=== PATIENT | female | born 1955 | race Caucasian/White ===

== ENCOUNTER → 2017-09-12 07:56 | Outpatient (CLI) | payer OTHER, SELFPAY ==
--- NOTE | 2017-09-12 | BRBX_PTH ---
PATIENT: HEBER GOMEZ LOC: [facility] U#:[id number] AGE/SX: 70/F ROOM: RE09/12/[address]: Dr. Vasile Montoya MD : 1955 BED: DIS: SPEC #: [id number] RECD: 09/12/17 13:43 STATUS: MALLORY XAVIER #: [id number] DUANE: 09/12/17 00:[address]: Vasile Montoya DEPT: SURGICAL PATHOLOGY RECD BY: Neil Pires ENTERED: 09/12/17 13:43 SP TYPE: BREAST BX OTHR DR: Dr. Jeff Ochoa MD Tissues: Left breast, NOS Procedures: Surgery Specimen Level IV HEADER OPERATION: Left breast PRE-OP DIAGNOSIS: Left breast lesion; breast lesion solid vs in situ with debris TISSUE SUBMITTED: Left breast 3 o?clock ISCHEMIC TIME: 60 seconds FIXATION TIME: 48 hours MICROSCOPIC DIAGNOSIS Left breast, 3 o?clock, biopsy: Focal mild intraductal hyperplasia without atypia. Focal microcalcification. Negative for malignancy. KERRIE:raman 09/15/17 COMMENT Correlation with clinical, radiologic findings and appropriate follow up are necessary. If there is a high suspicion of malignancy, rebiopsy is suggested if clinically indicated. MICROSCOPIC DESCRIPTION Slides are reviewed. GROSS DESCRIPTION Received in fixative is one container labeled with the patient's name and designated left breast. The specimen consists of multiple elongated fragments of brown-yellow fibroadipose tissue mixed with blood clot that in aggregate measure 2.5 x 1 x 0.1 cm. The entire specimen is submitted in one cassette. / KERRIE:raman 09/12/17 TC:5 CPT: 11036
--- NOTE | 2017-09-12 08:24 | US_ITS ---
STUDY: ULTRASOUND BREAST - LEFT REASON FOR EXAM: Female, 62 years old. Cyst drainage and core biopsy. TECHNIQUE: Axial and longitudinal images of the LEFT breast were performed with a high resolution ultrasound transducer. COMPARISON: None. FINDINGS: LEFT Breast: The surgeon performed a drainage of a small cyst at the 2:00 position breast at 4 cm from the nipple. The surgeon also performed ultrasound guided biopsy of a 4 mm x 4 mm x 3 mm hypoechoic solid nodule at the 3:00 position breast. US/US Breast Biopsy 1st Lesion IMPRESSION: Ultrasound guided breast aspiration and biopsy. ASSESSMENT CATEGORY: BIRADS Category 2: Benign. A letter regarding these results will be sent to the patient by the facility within 30 days. Electronically Signed: Pardeep Lyons MD at 10:40 EDT Tel [phone], Service support ,
--- NOTE | 2017-09-12 09:14 | PCM.OPRPT ---
Problem List (1) Cyst of left breast Status: Acute Report of Operation Date of Procedure: 09/12/17 Pre-Operative Diagnosis: Left breast cyst ?2 with debris Post-Operative Diagnosis: Same Surgery/Procedure Performed:: Ultrasound-guided left breast cyst aspiration. Ultrasound-guided left breast retroareolar biopsy with mammotome Specimen's removed: Left breast retroareolar biopsy Description of Procedure: The patient's left breast was prepped and draped in usual sterile fashion. Ultrasound was used to localize the lateral cyst. The skin was anesthetized and a 22-gauge needle was placed into the cyst and it was aspirated. The cyst ruptured upon puncture. Next the retroareolar cyst with debris was localized. The skin was anesthetized and a small incision was made with 11 blade scalpel. Next the mammotome was placed below the cyst with ultrasound guidance. The mammotome was used to biopsy this area. The needle was removed and pressure was held. Steri-Strip was placed over the incision as well as a bandage. Patient tolerated the procedure well.
== END ==
PROVIDERS: Visit Provider Surgery
DX: N60.02 Solitary cyst of left breast (principal); N62 Hypertrophy of breast; Z98.84 Bariatric surgery status
CPT/HCPCS: 19083; 88305

== ENCOUNTER → 2018-11-02 | Outpatient (CLI) | payer OTHER, SELFPAY ==
--- NOTE | 2018-11-02 14:58 | BI_ITS ---
MAMMOGRAPHY - BILATERAL SCREENING REASON FOR EXAM: Female, 63 years old. Routine annual screening examination. PERTINENT HISTORY: Mother with breast cancer. Grandmother with breast cancer. TECHNIQUE: Digital bilateral breast tricia (3D mammographic acquisition) in the CC and MLO projections. 2-D mediolateral oblique (MLO) and craniocaudad (CC) views of both breasts were obtained. CAD: Full Field Digital Mammography with Computer Added Detection was performed. COMPARISON: Comparison is made with prior operative examination dated April 24, 2016. FINDINGS: Breast Composition: The breasts are heterogeneously dense, which may obscure small masses. There are no dominant masses or suspicious calcifications. Stable benign-appearing bilateral axillary lymph nodes. No other significant abnormalities are identified. There has been no significant change since the prior study. BI/SCREEN MAMM (CAD) W/TRICIA BILAT IMPRESSION: Stable bilateral screening mammogram. Yearly follow-up mammogram recommended. (A) ASSESSMENT CATEGORY: BIRADS Category 2: Benign. A letter regarding these results will be sent to the patient by the facility within 30 days. Approximately 10% of breast cancers are not detected by mammography. A normal mammogram should not delay biopsy of a clinically suspicious abnormality. [id number] Electronically Signed: Pardeep Lyons, at 9:17 EDT , Service support ,
== END | disposition home or self-care (01) ==
LOC: OPBI 14:55
PROVIDERS: Referring Provider Surgery; Visit Provider Surgery
DX: Z12.31 Encounter for screening mammogram for malignant neoplasm of breast (principal)
CPT/HCPCS: 77063; 77067

== ENCOUNTER → 2019-03-10 13:15 | Outpatient (REF) | payer OTHER, SELFPAY ==
[2019-03-10 14:34] LABS: Vitamin B12 1553 pg/mL (211-911)
[2019-03-10 14:46] LABS: PTHIN 81.1 pg/mL (18.4-80.1)
== END ==
LOC: OLS.WCEH 13:15
DX: R69 Illness, unspecified (principal)
CPT/HCPCS: 82607; 83970

== ENCOUNTER → 2019-09-27 10:54 | Outpatient (CLI) | payer OTHER, SELFPAY | PROVIDERS: Visit Provider Internal Medicine Endocrinology, Diabetes & Metabolism | DX: M81.0 Age-related osteoporosis without current pathological fracture (principal) | CPT/HCPCS: 83970 ==

== ENCOUNTER → 2019-12-22 13:54 | Outpatient (CLI) | payer OTHER, MEDICARE, SELFPAY ==
[2019-12-22 14:00] VITALS: BP 136/65; PULSE 78; RESP 16; TEMP 36.1; O2SAT 100; BMI 35.5
[2019-12-22] MEDS: 0.9% NaCl IVPB Med Flush (250 mL) 15 ML IV (14:15)
[2019-12-22] MEDS: Zoledronic Acid 5 MG 100 ML 300 MG IV (14:31)
[2019-12-22] MEDS: 0.9% NaCl Peripheral Flush Adult/Peds IV (14:35)
== END ==
PROVIDERS: Referring Provider Internal Medicine Endocrinology, Diabetes & Metabolism; Visit Provider Internal Medicine Endocrinology, Diabetes & Metabolism
DX: M81.0 Age-related osteoporosis without current pathological fracture (principal)
CPT/HCPCS: J7050; A4216; J3489

== ENCOUNTER → 2020-01-06 08:38 | Outpatient (CLI) | payer OTHER, MEDICARE, SELFPAY ==
[2019-12-22 14:00] VITALS: BMI 35.5
--- NOTE | 2020-01-06 08:39 | BI_ITS ---
MAMMOGRAPHY - BILATERAL SCREENING REASON FOR EXAM: Female, 64 years old. Routine annual screening examination. PERTINENT HISTORY: Mother with breast cancer. Grandmother with breast cancer. History of prior left breast biopsy. TECHNIQUE: Digital bilateral breast tricia (3D mammographic acquisition) in the CC and MLO projections. 2-D mediolateral oblique (MLO) and craniocaudad (CC) views of both breasts were obtained. CAD: Full Field Digital Mammography with Computer Added Detection was performed. COMPARISON: Comparison is made with prior study dated 11/02/2018. FINDINGS: Breast Composition: The breasts are heterogeneously dense, which may obscure small masses. There are no dominant masses or suspicious calcifications. Stable benign appearing bilateral axillary lymph nodes. No other significant abnormalities are identified. There has been no significant change since the prior study. BI/SCREEN MAMM (CAD) W/TRICIA BILAT IMPRESSION: Stable bilateral screening mammogram. Yearly follow-up mammogram recommended. (A) ASSESSMENT CATEGORY: BIRADS Category 2: Benign. A letter regarding these results will be sent to the patient by the facility within 30 days. Approximately 10% of breast cancers are not detected by mammography. A normal mammogram should not delay biopsy of a clinically suspicious abnormality. [id number] Electronically Signed: Pardeep Lyons, at 9:55 EDT , Service support ,
== END ==
DX: Z12.31 Encounter for screening mammogram for malignant neoplasm of breast (principal); Z80.3 Family history of malignant neoplasm of breast
CPT/HCPCS: 77063; 77067

== ENCOUNTER → 2021-01-16 07:18 | Outpatient (CLI) | payer OTHER, MEDICARE, SELFPAY ==
[2019-12-22 14:00] VITALS: BMI 35.5
--- NOTE | 2021-01-16 07:21 | BI_ITS ---
MAMMOGRAPHY - BILATERAL SCREENING REASON FOR EXAM: Female, 65 years old. Routine annual screening examination. PERTINENT HISTORY: Mother with breast cancer. Grandmother with breast cancer. TECHNIQUE: Digital bilateral breast tricia (3D mammographic acquisition) in the CC and MLO projections. 2-D mediolateral oblique (MLO) and craniocaudad (CC) views of both breasts were obtained. CAD: Full Field Digital Mammography with Computer Added Detection was performed. COMPARISON: Comparison is made with prior study 01/06/2020 and 11/02/2018. FINDINGS: Breast Composition: The breasts are heterogeneously dense, which may obscure small masses. There are no dominant masses or suspicious calcifications. Stable asymmetry of breast tissue were more breast tissue is seen in the right breast as compared to the left side. Stable small benign appearing bilateral axillary lymph nodes. No other significant abnormalities are identified. There has been no significant change since the prior study. BI/SCRN MAMM (CAD)W/TRICIA BILAT IMPRESSION: Stable bilateral screening mammogram. Yearly follow-up mammogram recommended. (A) ASSESSMENT CATEGORY: BIRADS Category 2: Benign. A letter regarding these results will be sent to the patient by the facility within 30 days. Approximately 10% of breast cancers are not detected by mammography. A normal mammogram should not delay biopsy of a clinically suspicious abnormality. [id number] Electronically Signed: Pardeep Lyons MD at 8:23 EDT , Service support ,
[2021-01-16 08:00] VITALS: BP 169/82; PULSE 92; RESP 16; TEMP 36.1; O2SAT 97; BMI 33.5
[2021-01-16] MEDS: Zoledronic Acid 5 MG 100 ML 300 MG IV (08:25)
[2021-01-16] MEDS: 0.9% NaCl Peripheral Flush Adult/Peds IV (08:25)
[2021-01-16 08:51] VITALS: BP 125/80; PULSE 69; RESP 16; TEMP 36.1
== END ==
LOC: OPBI 07:19 → MEDOUTP 07:38
PROVIDERS: PCP Nurse Practitioner Family; Referring Provider Nurse Practitioner Family; Visit Provider Nurse Practitioner Family
DX: Z12.31 Encounter for screening mammogram for malignant neoplasm of breast (principal); M81.0 Age-related osteoporosis without current pathological fracture
CPT/HCPCS: 96365; 77063; 77067; A4216; J3489

== ENCOUNTER 2021-10-12 07:54 | Day surgery (SDC) | payer MEDICARE, SELFPAY ==
--- NOTE | 2021-10-12 08:14 | HP.PCM_ITS ---
History and Physical Date of Admission: 10/12/21 Intake Visit Reasons: Hemorrhoids Chief Complaint: Hemorrhoids Water Filterer Required: No Is patient in pain?: No Allergies cephalexin [From Keflex] Allergy (Mild, Verified 09/18/21 14:24) Unknown codeine Allergy (Mild, Verified 09/18/21 14:24) Weepy eyes Medications Cholecalciferol (Vitamin D3) [Vitamin D3] 10,000 units PO DAILY 12/22/19 [History Confirmed 09/18/21] multivitamin 1 ea PO DAILY 12/22/19 [History Confirmed 09/18/21] duloxetine 30 mg capsule,delayed release 60 mg PO DAILY cap 09/18/21 [History Confirmed 09/18/21] [facility] Medical History (Updated 09/18/21 @ 16:[address] Davidson Gallardo MD) Breast pain, left Cyst of left breast Surgical History (Updated 09/18/21 @ 14:22 by Florence Friday) Gastric bypass status for obesity H/O colonoscopy History of appendectomy History of bilateral knee replacement History of carpal tunnel surgery History of hip surgery History of hysterectomy S/P tonsillectomy Family History (Updated 09/18/21 @ 14:22 by Florence Friday) Mother Breast cancer CVA (cerebral vascular accident) Cancer skin, uterine Father CVA (cerebral vascular accident) Heart disease Social History (Updated 09/18/21 @ 14:23 by Florence Friday) Smoking Status: Never smoker alcohol intake: current alcohol intake frequency: holidays/special occasions only substance use type: does not use HPI HPI HPI: HEBER GOMEZ, is a 66 F who presents to the office today for surgical consultation regarding hemorrhoids. The patient is referred by Dr. Jeff kauffman and a written copy of my surgical consult recommendations will return to him. The patient has concerns about hemorrhoids. There is history of a colonoscopy June 2017 where a inflammatory polyp was removed. Patient complains of a dull pressure pain from her hemorrhoids worsened with prolonged sitting. Aggravated with diarrhea. She had previously been on gabapentin therapy. Dr. Phan's note additionally reviews that the patient is complaining of diarrhea. The previous colonoscopy in 2018 had an incomplete removal of an inflammatory polyp and a 3-month follow-up was recommended to the patient. Additionally she was detected is having bilateral groin rash consistent with Viola intertrigo and she was treated with ketoconazole cream. I have a report of her colonoscopy done by Dr. Laz Mijares which suggest that there was a 13 mm polyp at 70 cm proximal to the anus semipedunculated. There is poor endoscopic visualization secondary to a poor bowel prep. As noted the pathology of the polyp was an inflammatory polyp. Patient's primary complaint is occasional blood noted on the tissue paper. She feels like something prolapses out. She feels like sometimes she is sitting on something. She was not aware that her previous colonoscopy was felt to be repeated at 3 months. She denies any abdominal pain. She claims that she has abundant gas. To further complicate her presentation she has had a previous gastric bypass procedure. She did have an abdominoplasty. She lost approximately 130 pounds in weight but regained 27. ROS General General: No weight change, appetite, fatigue, colon cancer, breast cancer or weakness HEENT HEENT: Yes eye surgery; No difficulty swallowing, eye injury, swollen glands or hoarseness Endo Endocrine: No thyroid disease, diabetes mellitus, thyroid cancer, Hair loss, heat intolerance or cold intolerance Skin Skin: No rash or changing moles Musc Musculoskeletal: Yes back problems and arthritis; No rheumatoid arthritis, gout or joint pain Cardio Cardiovascular: No murmur, pacemaker, heart disease, atrial fibrillation, high blood pressure, heart attack, heart stent, palpitations, shortness of breat with exertion or chest pain Psych Psychiatric: No depression, anxiety or hearing voices Resp Respiratory: No shortness of breath, No sleep apnea, No cough, No COPD, No asthma, No emphysema and No wheezing Gastro Gastrointestinal: No abdominal pain, No nausea or vomiting, No diarrhea, No constipation, No blood in stool, No acid reflux, Yes hemorrhoids, No ulcers, No gallbladder problem and No black,tarry stools Jovan Hematologic: No blood thinners, No blood disorders, No bleeding, No anemia and No blood clots Neuro Neurologic: No system reviewed and no additional complaints, except as documented, No as per HPI, No abnormal gait, No abnormal hearing, No abnormal movements, No abnormal speech, No behavioral changes, No burning sensations, No confusion, No convulsions, No disequilibrium, No dizziness, No localized weaknes s, No frequent falls, No headache(s), No lack of coordination, No loss of vision, No memory loss, No numbness, No other visual disturbances, No radicular pain, No restless legs, No sensory deficit, No syncope, No tingling, No tremor(s), No weakness and No other Exam Const General: cooperative, comfortable and no acute distress Nutritional Appearance: obese Orientation: alert, awake and oriented x3 HENMT Head: normal to inspection Eyes General: appearance normal, both eyes and all related structures Neck Neck: normal visual inspection Resp Effort & Inspection: normal respiratory effort Auscultation: clear to auscultation bilaterally Cardio Rate: regular rate Rhythm: regular rhythm GI Palpation: soft Other: Long xiphoid to umbilicus midline incision. Long Pfannenstiel abdominoplasty incision soft, nontender, normal bowel sounds External inspection of the anus fails to reveal any hemorrhoids. Skin is intact. Digital exam demonstrates some small internal hemorrhoids. The patient notes a diffuse erythematous rash that extends down to the anus around the thighs vulva. Etiology apparently not clear Musc Cervical Spine: normal cervical lordosis Skin Other: Diffuse perineal rash Neuro General: patient alert and patient awake Extrem General: no calf tenderness Psych Appearance: grossly normal Assessment and Plan Assessment and Plan (1) Hemorrhoids: Qualifiers: Hemorrhoid type: unspecified Qualified Code(s): K64.9 - Unspecified hemorrhoids (2) Dermatitis: Status: Acute Plan - Dr. Davidson Gallardo MD: The patient is convinced that she has hemorrhoids however clinically these are very unimpressive and is clearly nothing on the outside. I recommended the patient a colonoscopy based upon her previous failed bowel prep and only partial polypectomy. I am not convinced at the moment that the patient is actually sensing hemorrhoids but it is possible that she has a component of prolapsing internal hemorrhoids. Her perineal rash is extraordinarily impressive. She needs to continue to follow-up with primary care and I suppose if need be might even benefit from a dermatology consultation. I appreciate the opportunity of assisting with her surgical care Copy: Dr. Jeff Gallardo M.D., F.A.C.S. I have re-examined the patient. There are no clinical changes since date of exam.
[2021-10-12 08:23] VITALS: BP 156/91; PULSE 85; RESP 16; TEMP 36.4; O2SAT 100; BMI 33.0
[2021-10-12] MEDS: Lactated Ringers 1,000 ML 15 ML IV (08:28)
[2021-10-12 09:51] VITALS: BP 140/87; BP 156/91; PULSE 70; RESP 18; TEMP 36.9; O2SAT 100
--- NOTE | 2021-10-12 09:54 | OP.CCLET_ITS ---
10/12/2021 Kevyn Villarreal Re : Colonoscopy procedure for Zainab Houserr Kenyatta This procedure was performed on Tuesday, October 12, 2021. My impressions and recommendations are as follows: Impressions : - Preparation of the colon was poor. - Non-thrombosed internal hemorrhoids and internal hemorrhoids that prolapse with straining, but spontaneously regress to the resting position (Grade II) found on digital rectal exam. - Diverticulosis in the sigmoid colon. - Tortuous colon. - No specimens collected. Recommendations : - Discharge patient to home. - Resume previous diet. - Continue present medications. - Repeat colonoscopy in 5 years for surveillance. - Return to my office PRN if rectal bleeding persist/could consider hemorrhoidectomy but lax anal tone Second attempt at colonoscopy with previous per Dr Mijares with poor bowel prep My findings are described in the full procedure note, which is enclosed. If I can be of further assistance, please feel free to contact me at Doctor phone number(s): Work: . Sincerely, Davidson Gallardo MD 10/12/2021 9:54:17 AM This report has been signed electronically.
--- NOTE | 2021-10-12 09:54 | OP.COLON_ITS ---
Patient Name: Zainab River Procedure Date: 10/12/2021 9:15 AM Date of : 1955 Age: 66 Procedure: Colonoscopy Indications: High risk colon cancer surveillance: Personal history of colonic polyps Providers: Davidson Gallardo MD Referring MD: Kevyn Villarreal Medicines: See the Anesthesia note for documentation of the administered medications Patient Profile: Last Colonoscopy: 2017. Complications: No immediate complications. Procedure: Pre-Anesthesia Assessment: - Prior to the procedure, a History and Physical was performed, and patient medications and allergies were reviewed. The patient's tolerance of previous anesthesia was also reviewed. The risks and benefits of the procedure and the sedation options and risks were discussed with the patient. All questions were answered, and informed consent was obtained. Prior Anticoagulants: The patient has taken no previous anticoagulant or antiplatelet agents. ASA Grade Assessment: II - A patient with mild systemic disease. After reviewing the risks and benefits, the patient was deemed in satisfactory condition to undergo the procedure. After I obtained informed consent, the scope was passed under direct vision. Throughout the procedure, the patient's blood pressure, pulse, and oxygen saturations were monitored continuously. The pediatric colonoscope was introduced through the anus and advanced to the cecum, identified by appendiceal orifice and ileocecal valve. The colonoscopy was extremely difficult due to poor bowel prep and a tortuous colon. The patient tolerated the procedure well. The quality of the bowel preparation was poor. Scope In: 9:20:27 AM Scope Withdrawal Time 0 hours 9 minutes 24 seconds Scope Out: 9:47:18 AM Total Procedure Duration Time 0 hours 26 minutes 51 seconds Findings: The digital rectal exam findings include non-thrombosed internal hemorrhoids and internal hemorrhoids that prolapse with straining, but spontaneously regress to the resting position (Grade II). Patient has lax anal tone. Multiple diverticula were found in the sigmoid colon. Lipoma of proximal ascending colon The colon (entire examined portion) was significantly tortuous. Advancing the scope required using manual pressure. Impression: - Preparation of the colon was poor. - Non-thrombosed internal hemorrhoids and internal hemorrhoids that prolapse with straining, but spontaneously regress to the resting position (Grade II) found on digital rectal exam. - Diverticulosis in the sigmoid colon. - Tortuous colon. - No specimens collected. Recommendation: - Discharge patient to home. - Resume previous diet. - Continue present medications. - Repeat colonoscopy in 5 years for surveillance. - Return to my office PRN if rectal bleeding persist/could consider hemorrhoidectomy but lax anal tone Second attempt at colonoscopy with previous per Dr Mijares with poor bowel prep Procedure Code(s): --- Professional --- 45940, Colonoscopy, flexible; diagnostic, including collection of specimen(s) by brushing or washing, when performed (separate procedure) Diagnosis Code(s): --- Professional --- Z86.010, Personal history of colonic polyps K64.1, Second degree hemorrhoids K57.30, Diverticulosis of large intestine without perforation or abscess without bleeding Q43.8, Other specified congenital malformations of intestine CPT copyright 2017 [employer]. All rights reserved. The codes documented in this report are preliminary and upon preload supervisor review may be revised to meet current compliance requirements. Davidson Gallardo MD 10/12/2021 9:54:17 AM This report has been signed electronically. Number of Addenda: 0 Note Initiated On: 10/12/2021 9:15 AM
[2021-10-12 09:55] VITALS: BP 151/84; BP 156/91; PULSE 69; RESP 18; O2SAT 98
[2021-10-12 10:00] VITALS: BP 146/92; BP 156/91; PULSE 65; RESP 16; O2SAT 98
[2021-10-12 10:05] VITALS: BP 148/84; BP 156/91; PULSE 63; RESP 18; TEMP 37; O2SAT 100
[2021-10-12 10:23] VITALS: BP 156/91
== END 2021-10-12 10:33 | disposition home or self-care (01) ==
LOC: EN 07:59 → AC 08:01
PROVIDERS: PCP Nurse Practitioner Family; Referring Provider Nurse Practitioner Family; Visit Provider Surgery
PROC: 0DJD8ZZ Inspection of Lower Intestinal Tract, Via Natural or Artificial Opening Endoscopic (ICD-10-PCS; CPT 45378; principal; 2021-10-12 08:55)
DX: Z12.11 Encounter for screening for malignant neoplasm of colon (principal); K64.8 Other hemorrhoids; L30.9 Dermatitis, unspecified; Z86.010 Personal history of colon polyps; R19.7 Diarrhea, unspecified; K57.30 Diverticulosis of large intestine without perforation or abscess without bleeding; Q43.8 Other specified congenital malformations of intestine; Z78.0 Asymptomatic menopausal state; Z97.3 Presence of spectacles and contact lenses; Z98.84 Bariatric surgery status; Z96.653 Presence of artificial knee joint, bilateral; Z90.710 Acquired absence of both cervix and uterus
CPT/HCPCS: 45378; J7120; J2405

== ENCOUNTER 2021-12-30 02:12 | Emergency (ER) | payer MEDICARE, SELFPAY ==
[2021-12-30 02:13] VITALS: BP 181/89; PULSE 86; RESP 16; TEMP 35.6; O2SAT 97; BMI 35.6
--- NOTE | 2021-12-30 02:19 | EDS_ITS ---
HPI History of Present Illness Chief Complaint: Lower Extremity Injury Informant: patient Onset/Context/Timing Onset: Yesterday Context: Sudden Onset Timing: Continuous Quality of Pain: Aching Location: R ankle Current Severity: Moderate Maximum Severity: Moderate Worsened by: walking, plantarflexion Relieved by: rest/remaining still Associated Symptoms Associated Symptoms: Negative for Parasthesia, Weakness or Loss of Funtion Narrative Narrative: Patient states this past night, there were 2 dogs of her either plain or fighting and they were not hers, she was nearby on the street/outdoors and they knocked her down. She does not know the exact mechanism but the only injury she sustained was to her right ankle, it hurts in both malleoli and a little bit just caudal to this. She is able to hobble/walk on it but with pain. [facility] Medical History Arthritis Breast pain, left Cyst of left breast Non-smoker Post-menopausal Shortness of breath on exertion Wears contact lenses Wears glasses Home Medications Cholecalciferol (Vitamin D3) [Vitamin D3] 10,000 units PO DAILY 12/22/19 [History Last Taken Unknown] multivitamin 1 ea PO DAILY 12/22/19 [History Last Taken Unknown] duloxetine 30 mg capsule,delayed release 60 mg PO DAILY 09/18/21 [History Last Taken Unknown] calcitriol 0.25 mcg capsule 0.25 mcg PO MOWEFR 12/30/21 [History Last Taken Unknown] Allergy/AdvReac Type Severity Reaction Status Date / Time cephalexin [From Keflex] Allergy Mild Unknown Verified 12/30/21 02:14 codeine Allergy Mild Weepy eyes Verified 12/30/21 02:14 Family History (Updated 09/18/21 @ 14:22 by Florence Friday) Mother Breast cancer CVA (cerebral vascular accident) Cancer skin, uterine Father CVA (cerebral vascular accident) Heart disease Surgical History Gastric bypass status for obesity H/O colonoscopy History of appendectomy History of bilateral knee replacement History of carpal tunnel surgery History of hip surgery History of hysterectomy History of lumbar laminectomy S/P tonsillectomy Social History Smoking Status: Never smoker alcohol intake: current alcohol intake frequency: holidays/special occasions only substance use type: does not use ROS ROS ED Constitutional Constitutional ED: Denies chills or fever(s) Musculoskeletal Musculoskeletal: Reports extremity pain; Denies neck pain Integumentary Denies Abrasions, rash or wounds Neurologic Neurologic: Denies paresthesias or weakness EXAM Physical Exam Const Vital Signs: 12/30/21 02:13 Temperature 96.1 F L Temperature Source Temporal Pulse Rate 86 Respiratory Rate 16 Blood Pressure 181/89 H Blood Pressure Mean 119 Pulse Ox 97 Oxygen Delivery Method Room Air Positive well nourished and well developed General Appearance ED: well developed and NAD Neck full ROM and supple Resp normal respiratory effort Effort and Inspection: able to speak in complete sentences Back/Spine normal ROM and normal to inspection Extremity normal to inspection and full ROM Extremity Narrative: Mild swelling right lateral malleolus which is tender more so than the medial malleolus on the right which is also tender mildly. Mild tender just distal to this in the medial aspect of the talus but not the calcaneus. Able to range both painful with plantarflexion. Mildly tender at the tibia/deluca just proximal to the medial malleolus but not very far. No tenderness more proximally in the leg or the knee or proximal fibula. No tenderness throughout the midfoot or forefoot including the base of the fifth metatarsal. Neuro oriented x3, no focal motor deficits and no sensory deficits noted Sensorium / Orientation: alert Psych mental status grossly normal and thought process normal Skin no wounds Rashes: no rashes MDM MDM MDM Narrative Medical decision making narrative: On my interpretation, 3 view XR series of the R ankle is negative for any acute fracture or dislocation. Pt treated w/ APAP (no NSAIDs due to prior gastric bypass) and aircast for what clinically is consistent with more of a sprain of the ankle. Joint is stable clinically. Close outpatient follow up advised if not improving in the next 1-2 weeks. Radiography Diagnostic Testing: Clinical Impression(s) from Imaging Studies Ankle X-Ray 12/30/21 02:19 IMPRESSION: Ankle mortise effusion. No finding of fracture or dislocation. Electronically Signed: King Santamaria MD at 2:45 EDT Reading Location ID and State: [facility] / [place] Tel , Service support , Discharge Plan Triage Chief Complaint: Lower Extremity Injury ED Provider: Marlo Frederick Dx/Rx/DC Orders Clinical Impression: Right ankle sprain Instructions: ED Ankle Sprain (Adult) Prescriptions: No Action multivitamin 1 EACH tablet 1 ea PO DAILY Cholecalciferol (Vitamin D3) [Vitamin D3] 5,000 UNIT capsule 10,000 units PO DAILY duloxetine 30 mg capsule,delayed release(DR/EC) 60 mg PO DAILY calcitriol 0.25 mcg capsule 0.25 mcg PO MOWEFR Primary Care Provider: Justin You NP Referrals: Justin You MISSILE PAD MECHANIC, MISSILE PAD MECHANIC-C [Primary Care Provider] - 10-14 Days if not better Disposition Disposition: Home, Self Care
--- NOTE | 2021-12-30 02:19 | RAD_ITS ---
STUDY: X-RAY - RIGHT ANKLE REASON FOR EXAM: Female, 66 years old. Fall, right ankle pain TECHNIQUE: 3 view(s) of the ankle. COMPARISON: None. FINDINGS: The bones are demineralized. Normal visualized distal tibia and fibula. Normal medial and lateral malleoli. Normal tibiotalar articulation and ankle mortise. Normal visualized talus and calcaneus. The visualized subtalar, talonavicular, calcaneocuboid and tarsal articulations are normal. Ankle mortise effusion. There is no demonstrated fracture. The soft tissue structures are unremarkable. RAD/Ankle min 3 Views IMPRESSION: Ankle mortise effusion. No finding of fracture or dislocation. Electronically Signed: King Santamaria MD at 2:45 EDT ,
[2021-12-30 02:59] VITALS: BP 119/62; PULSE 75; RESP 19; TEMP 37.1; O2SAT 98
[2021-12-30] MEDS: Acetaminophen 500 MG Tablet 1000 MG PO (03:03)
== END 2021-12-30 03:04 | disposition home or self-care (01) ==
LOC: ED 02:32
PROVIDERS: Emergency Provider Emergency Medicine; PCP Nurse Practitioner Family; Visit Provider Emergency Medicine
DX: S93.401A Sprain of unspecified ligament of right ankle, initial encounter (principal); Y04.2XXA Assault by strike against or bumped into by another person, initial encounter
CPT/HCPCS: 73610; 99283

== ENCOUNTER → 2022-02-11 | Outpatient (CLI) | payer MEDICARE, SELFPAY ==
--- NOTE | 2022-02-11 07:47 | BI_ITS ---
MAMMOGRAPHY - BILATERAL SCREENING REASON FOR EXAM: Female, 66 years old. Routine annual screening examination. PERTINENT HISTORY: Mother with breast cancer. Grandmother with breast cancer. Prior left breast biopsies. TECHNIQUE: Digital bilateral breast tricia (3D mammographic acquisition) in the CC and MLO projections. 2-D mediolateral oblique (MLO) and craniocaudad (CC) views of both breasts were obtained. CAD: Full Field Digital Mammography with Computer Added Detection was performed. COMPARISON: Comparison is made with prior study 01/16/2021 and 01/06/2020. FINDINGS: Breast Composition: The breasts are heterogeneously dense, which may obscure small masses. There are no dominant masses or suspicious calcifications. Stable benign-appearing bilateral axillary lymph nodes. No other significant abnormalities are identified. There has been no significant change since the prior study. BI/SCRN MAMM (CAD)W/TRICAI BILAT IMPRESSION: Stable bilateral screening mammogram. Yearly follow-up mammogram recommended. (A) ASSESSMENT CATEGORY: BIRADS Category 2: Benign. A letter regarding these results will be sent to the patient by the facility within 30 days. Approximately 10% of breast cancers are not detected by mammography. A normal mammogram should not delay biopsy of a clinically suspicious abnormality. [id number] Electronically Signed: Pardeep Lyons MD at 8:56 EDT ,
== END | disposition home or self-care (01) ==
LOC: OPBI 07:47
PROVIDERS: PCP Nurse Practitioner Family; Visit Provider Nurse Practitioner Family
DX: Z12.31 Encounter for screening mammogram for malignant neoplasm of breast (principal); Z80.3 Family history of malignant neoplasm of breast
CPT/HCPCS: 77063; 77067

== ENCOUNTER → 2022-04-18 | Outpatient (CLI) | payer MEDICARE, SELFPAY ==
[2022-04-18 13:35] VITALS: BP 149/79; PULSE 74; RESP 18; TEMP 35.9; O2SAT 97
[2022-04-18] MEDS: 0.9% NaCl IVPB Med Flush (250 mL) 15 ML IV (14:03)
[2022-04-18] MEDS: Zoledronic Acid 5 MG 100 ML 300 MG IV (14:04)
[2022-04-18] MEDS: 0.9% NaCl Peripheral Flush Adult/Peds IV (14:07)
[2022-04-18 14:34] VITALS: BP 142/67; PULSE 65; RESP 16; TEMP 36.7
== END | disposition home or self-care (01) ==
LOC: MEDOUTP 13:31
PROVIDERS: PCP Nurse Practitioner Family
DX: M81.0 Age-related osteoporosis without current pathological fracture (principal)
CPT/HCPCS: 96365; J7050; A4216; J3489

== ENCOUNTER → 2023-02-27 | Outpatient (CLI) | payer MEDICARE, SELFPAY ==
--- NOTE | 2023-02-27 14:15 | BD_ITS ---
STUDY: DUAL ENERGY X-RAY ABSORPTIOMETRY / DXA REASON FOR EXAM: Female, 67 years old. [id number] TECHNIQUE: Bone Mineral Density (BMD) measurements of lumbar spine and right hip were obtained. COMPARISON: None. FINDINGS: Lumbar Spine (L1-L4): g/cm2 (0.948) / T-score (-0.8) / Z-score (1.3) Findings are suggestive of normal bone density with a low fracture risk. Right Femur Total: g/cm2 (0.648) / T-score (-2.4) / Z-score (-0.9) Right Femoral Neck: g/cm2 (0.560) / T-score (-2.6) / Z-score (-0.8) BD/Dexa Bone Density Study IMPRESSION: The patient is considered osteoporotic as outlined below according to World Mack Organization (WHO) criteria with a high fracture risk. Reference Information: The T-score is the number of standard deviations above or below the standard which is normal for young adults at their peak bone mineral density. The World Health Organization (WHO) interprets the T-scores as follows: Above -1 Normal bone density Between -1 and -2.5 Osteopenia Equal to / or below -2.5 Osteoporosis As a practical clinical guideline, osteopenia may be graded as follows: Mild -1 through -1.5 Moderate -1.6 through -2.0 Severe -2.1 through -2.4 The Z-score is the number of standard deviations above or below age-matched controls. A Z-score of less than -1.5 would be considered abnormal. References: 1. NIH Osteoporosis and Related Bone Diseases www osteo.org 2. International Society for Clinical Densitometry www iscd.org 3. National Osteoporosis Foundation www nof.org Electronically Signed: Pardeep Lyons MD at 14:13 EDT ,
--- NOTE | 2023-02-27 14:15 | BI_ITS ---
MAMMOGRAPHY - BILATERAL SCREENING REASON FOR EXAM: Female, 67 years old. Routine annual screening examination. PERTINENT HISTORY: Mother with breast cancer. Grandmother with breast cancer. History of prior left breast biopsy. TECHNIQUE: Digital bilateral breast tricia (3D mammographic acquisition) in the CC and MLO projections. 2-D mediolateral oblique (MLO) and craniocaudad (CC) views of both breasts were obtained. CAD: Full Field Digital Mammography with Computer Added Detection was performed. A left exaggerated craniocaudad view was obtained as well. COMPARISON: Comparison is made with prior study dated February 11, 2022 and January 16, 2021. FINDINGS: Breast Composition: The breasts are heterogeneously dense, which may obscure small masses. There are no dominant masses or suspicious calcifications. Stable asymmetry of breast tissue or more breast tissue is seen in the upper outer quadrant of the right breast as compared to the left side. Stable benign appearing bilateral axillary lymph nodes. No other significant abnormalities are identified. There has been no significant change since the prior study. BI/SCRN MAMM (CAD)W/TRICIA BILAT IMPRESSION: Stable bilateral screening mammogram. Yearly follow-up mammogram recommended. (A) ASSESSMENT CATEGORY: BIRADS Category 2: Benign. A letter regarding these results will be sent to the patient by the facility within 30 days. Approximately 10% of breast cancers are not detected by mammography. A normal mammogram should not delay biopsy of a clinically suspicious abnormality. [id number] Electronically Signed: Pardeep Lyons MD at 15:36 EDT ,
== END | disposition home or self-care (01) ==
LOC: OPBD 14:12
PROVIDERS: PCP Family Medicine; Referring Provider Family Medicine; Visit Provider Family Medicine
DX: Z12.31 Encounter for screening mammogram for malignant neoplasm of breast (principal); Z80.3 Family history of malignant neoplasm of breast; M81.0 Age-related osteoporosis without current pathological fracture
CPT/HCPCS: 77063; 77067; 77080

== ENCOUNTER 2023-04-28 14:51 | Emergency (ER) | payer MEDICARE, SELFPAY ==
[2023-04-28 14:53] VITALS: BP 183/104; PULSE 109; RESP 20; TEMP 36.3; O2SAT 99; BMI 40.4
--- NOTE | 2023-04-28 15:27 | CT_ITS ---
INDICATION: Trauma, fell, hit head EXAMINATION: CT CERVICAL SPINE - CT Spine Cervical W/O Contrast Injection TECHNIQUE: Helically acquired images were obtained of the cervical spine. 2D reformatted images were reviewed. A radiation dose optimization technique was used for this scan. IV Contrast dosage and agent: None. COMPARISON: None. FINDINGS: VERTEBRAE: No acute fracture of the cervical spine. 2 mm spondylolisthesis C3-4 and C4-5. DISCS and SPINAL CANAL: Degenerative discogenic changes. No critical stenosis. NECK SOFT TISSUES: No prevertebral soft tissue swelling. 12 mm nodule right lobe thyroid. LUNG APICES: No acute pulmonary findings. CT/Spine Cervical without Contras IMPRESSION: Degenerative changes. No acute fracture of the cervical spine. Electronically Signed: Tanner Hinds MD at 16:21 EST ,
--- NOTE | 2023-04-28 15:27 | CT_ITS ---
INDICATION: Trauma, fall, hit head, blood thinner therapy EXAMINATION: CT BRAIN - CT Head or Brain W/O Contrast Injection TECHNIQUE: Multiple axial images were obtained of the head without intravenous contrast. A radiation dose optimization technique was used for this scan. IV Contrast dosage and agent: None. COMPARISON: None FINDINGS: BRAIN PARENCHYMA: No intra- or extra-axial hemorrhage. No evidence of acute infarct. No intracranial mass or mass effect. Posterior fossa structures are unremarkable. Volume loss with low attenuation of the periventricular white matter typical of chronic small vessel disease. CSF SPACES: Appropriate for age. No hydrocephalus. Basal cisterns are patent. CALVARIUM, SKULL BASE, PARANASAL SINUSES AND MASTOID AIR CELLS: Clear. No acute fracture. CT/Brain/Head without Contrast IMPRESSION: Volume loss with chronic white matter changes. No acute intracranial findings. Electronically Signed: Tanner Hinds MD at 16:14 EST ,
--- NOTE | 2023-04-28 15:28 | ED.VIS.FALL ---
HPI HPI - Fall History of Present Illness Chief Complaint: Fall Informant: patient Occured/Mechanism Occurred: Days Mechanism/Context: Yes same level fall Usually ambulates: Without assistance Pain/Injury Pain Location: head and neck Quality of Pain: Dull and Aching Current Severity: Mild Maximum Severity: Mild Associated Symptoms Associated Symptoms: Negative for Parasthesias, Weakness, Loss of function, Inability to ambulate or Amnesia Narrative Narrative: 68-year-old female history of A-fib on Eliquis also history of a benign cardiac tumor. On evening she was outside lost her balance fell backwards struck her head. Was not seen at that time. She developed a headache and some neck discomfort and was told by her physician's office with her being on Eliquis she needs to be evaluated. She is got some mild nausea but no vomiting. Denies any other injuries from the fall. Prior similar symptoms: No Recent Illness/Hospitalization: No PFSH PFSH Medical History Arthritis Breast pain, left Cyst of left breast Non-smoker Post-menopausal Shortness of breath on exertion Wears contact lenses Wears glasses Home Medications Cholecalciferol (Vitamin D3) [Vitamin D3] 10,000 units PO DAILY 12/22/19 [History Last Taken Unknown] multivitamin 1 ea PO DAILY 12/22/19 [History Last Taken Unknown] duloxetine 30 mg capsule,delayed release 60 mg PO DAILY 09/18/21 [History Last Taken Unknown] calcitriol 0.25 mcg capsule 0.25 mcg PO MOWEFR 12/30/21 [History Last Taken Unknown] Allergy/AdvReac Type Severity Reaction Status Date / Time cephalexin [From Keflex] Allergy Mild Hives Verified 04/28/23 14:52 codeine Allergy Mild Weepy eyes Verified 04/28/23 14:52 Family History Mother Breast cancer CVA (cerebral vascular accident) Cancer skin, uterine Father CVA (cerebral vascular accident) Heart disease Surgical History Gastric bypass status for obesity H/O colonoscopy History of appendectomy History of bilateral knee replacement History of carpal tunnel surgery History of hip surgery History of hysterectomy History of lumbar laminectomy S/P tonsillectomy Social History Smoking Status: Never smoker alcohol intake: current alcohol intake frequency: holidays/special occasions only substance use type: does not use ROS ROS ED ROS Narrative Nausea. Headache. Review of Systems ROS Unobtainable: Denies due to encephalopathy Constitutional Constitutional ED: Denies chills or fever(s) Eyes Eyes: Denies blurry vision ENT ENT ED: Denies ear pain or rhinorrhea Cardiovascular Cardiovascular: Denies chest pain Respiratory/Chest Respiratory/Chest: Denies cough or dyspnea Gastrointestinal Gastrointestinal: Reports nausea; Denies abdominal pain, constipation, diarrhea, melena or vomiting Genitourinary Genitourinary ED: Denies dysuria or hematuria Musculoskeletal Musculoskeletal: Denies arthralgias Integumentary Denies abscess Neurologic Neurologic: Reports headache(s) Psychiatric Psychiatric: Denies anxiety or depression Endocrine Endocrinology: Denies polydipsia Hematologic/Lymphatic Hematologic/Lymphatic: Denies easy bleeding Allergic/Immunologic Allergic/Immunologic ED: Denies mouth swelling EXAM Physical Exam Narrative Exam Narrative: Well-appearing 68-year-old female. Signs are stable and afebrile. H EENT exam pupils are round reactive light extra motions are intact. There is no facial trauma or tenderness. Posterior scalp to the small hematoma with tenderness. No laceration or blood. Trachea midline. She has diffuse tenderness over her neck both spinal and paraspinal. Lungs clear to auscultation bilaterally. Heart irregularly irregular rate about 105 no murmur. Chest wall and ribs nontender. Abdomen soft nontender. Back the thoracic and lumbar spine and back are nontender. Pelvic girdle intact. Moving all 4 extremities. She is awake and alert. Answering questions following commands. Normal teller coordinator strength. Normal dorsi plantarflexion. Const Vital Signs: 04/28/23 14:53 Temperature 97.4 F L Temperature Source Temporal Pulse Rate 109 H Respiratory Rate 20 H Blood Pressure 183/104 H Blood Pressure Mean 130 Pulse Ox 99 Oxygen Delivery Method Room Air Positive well nourished and well developed; Negative for cachectic, contractures or unkempt General Appearance ED: well developed and NAD; Negative for unkempt, cachectic or contractures Nutritional Appearance: Negative for cachectic HEENT Reports normocephalic trauma, contusion, hematoma and tenderness; Negative for atraumatic Eyes PERRL and EOMs intact bilaterally General Eye ED: Negative for pale conjunctiva or scleral icterus Neck No full ROM, no lymphadenopathy and supple General: tenderness Chest Wall inspection of chest normal and palpation of chest normal Resp normal respiratory effort, no retractions and clear to auscultation bilaterally Effort and Inspection: Negative for pain with movement Auscultation: Negative for rales, rhonchi or wheezes Cardio S1 normal heart sound, S2 normal heart sound and no murmurs; Negative for regular rate or regular rhythm Rate: Negative for bradycardia or tachycardic Rhythm: abnormal rhythm GI non-tender Inspection: Negative for abdominal distention Auscultation: normoactive bowel sounds Palpation: soft; Negative for guarding or rebound tenderness present Back/Spine no CVA tenderness General Back: Negative for CVA tenderness Cervical Spine: cervical spine tenderness Lumbar Spine / Lower Back: Negative for lumbar spinal tenderness or paraspinal muscle tenderness Extremity Extremity Narrative: Moving all 4 extremities. Normal strength. Normal range of motion. No deformity. No tenderness. Neuro oriented x3, CN's II-XII intact bilaterally, moves all extremities and no focal motor deficits Rashaad Coma Scale: document GCS findings Spontaneous Obeys Commands Oriented 15 Sensorium / Orientation: alert, oriented to person, oriented to place and oriented to time; Negative for orientation impaired, confused, lethargic or stuporous Motor Exam: strength 5/5 throughout Psych mental status grossly normal and thought process normal Appearance: Negative for unkempt Attitude: No agitated Mood & Affect: Negative for depressed, anxious or tearful Skin General Skin Exam: Negative for other Lesions: no lesions and No lesion noted Rashes: no rashes Trauma: Negative for abrasion or laceration MDM MDM MDM Narrative Medical decision making narrative: 68-year-old fell on night struck her head on the cement. Unsure if she had any LOC if so it was brief. But today in the last few days she has had a headache and some mild neck discomfort. She is on a blood thinner Eliquis. A CT of her brain and C-spine are being obtained. Her exam shows a contusion to the back of her scalp. Neurologically currently she is awake and alert with no focal motor deficits. Repeat exam patient is doing well at 6 PM. She will be discharged home with head injury instructions. Tylenol for pain. We went over her CAT scan results. History & Record Review Discussion w/independent historian: Patient Additional record(s) reviewed:: Prior inpatient record, Prior outpatient record, Prior ED visit and Prior labs Radiography Diagnostic Testing: Clinical Impression(s) from Imaging Studies Brain CT 04/28/23 15:27 IMPRESSION: Volume loss with chronic white matter changes. No acute intracranial findings. Electronically Signed: Tanner Hinds MD at 16:14 EST , Cervical Spine CT 04/28/23 15:27 IMPRESSION: Degenerative changes. No acute fracture of the cervical spine. Electronically Signed: Tanner Hinds MD at 16:21 EST , Discharge Plan Triage Chief Complaint: Fall ED Provider: Doyle South Dx/Rx/DC Orders Clinical Impression: Chronic anticoagulation, Closed head injury, History of atrial fibrillation, Fall Instructions: ED Head Injury (Adult) Prescriptions: No Action multivitamin 1 EACH tablet 1 ea PO DAILY Cholecalciferol (Vitamin D3) [Vitamin D3] 5,000 UNIT capsule 10,000 units PO DAILY duloxetine 30 mg capsule,delayed release(DR/EC) 60 mg PO DAILY calcitriol 0.25 mcg capsule 0.25 mcg PO MOWEFR Primary Care Provider: Mirian Sanchez Referrals: Jeff Phan MD [Non-Staff] - Activity Restrictions/Additional Instructions: Ice to your scalp. Tylenol for pain. Follow-up with your doctor as needed. Disposition Disposition: Home, Self Care
[2023-04-28 18:08] VITALS: BP 166/77; PULSE 88; RESP 16; O2SAT 99
== END 2023-04-28 18:08 | disposition home or self-care (01) ==
PROVIDERS: Emergency Provider Emergency Medicine; PCP Family Medicine; Visit Provider Emergency Medicine
DX: S09.8XXA Other specified injuries of head, initial encounter (principal); I48.91 Unspecified atrial fibrillation; Z79.01 Long term (current) use of anticoagulants; Y92.89 Other specified places as the place of occurrence of the external cause; Z90.49 Acquired absence of other specified parts of digestive tract; Z96.653 Presence of artificial knee joint, bilateral; Z90.710 Acquired absence of both cervix and uterus; W01.198A Fall on same level from slipping, tripping and stumbling with subsequent striking against other object, initial encounter
CPT/HCPCS: 70450; 72125; 99282

== ENCOUNTER 2023-08-30 14:04 | Emergency (ER) | payer MEDICARE, SELFPAY ==
[2023-08-30 14:05] VITALS: BP 155/97; PULSE 125; RESP 20; TEMP 36.2; O2SAT 97
--- NOTE | 2023-08-30 14:52 | ED.VIS.FALL ---
HPI HPI - Fall History of Present Illness Chief Complaint: Fall Informant: patient Occured/Mechanism Occurred: Yesterday Mechanism/Context: Yes same level fall Pain/Injury Pain Location: head, back and lower extremity (Bilateral knees, left hip, left ankle) Quality of Pain: Stabbing Worsened by: Movement Relieved by: Rest Associated Symptoms Associated Symptoms: Positive for Weakness; Negative for Parasthesias, Loss of function, Inability to ambulate, Loss of consciousness or Amnesia Narrative Narrative: Patient presents after a fall that occurred yesterday. Patient states her legs have been feeling weak which caused her to fall. Patient states she did hit her head. Patient denies any loss of consciousness. Patient is on Eliquis however. Patient states her legs have been weak since her open heart surgery in July. Patient complains of pain in her low back, left hip, left ankle, and both knees. Patient has had total knee replacements of both knees. Patient denies any paresthesias. Patient has been able to ambulate since the fall. PFSH PFS Medical History Arthritis Breast pain, left Cyst of left breast Non-smoker Post-menopausal Shortness of breath on exertion Wears contact lenses Wears glasses Home Medications Cholecalciferol (Vitamin D3) [Vitamin D3] 10,000 units PO DAILY 12/22/19 [History Last Taken Unknown] multivitamin 1 ea PO DAILY 12/22/19 [History Last Taken Unknown] duloxetine 30 mg capsule,delayed release 60 mg PO DAILY 09/18/21 [History Last Taken Unknown] calcitriol 0.25 mcg capsule 0.25 mcg PO MOWEFR 12/30/21 [History Last Taken Unknown] hydrocodone-acetaminophen 5-325mg 5mg-325mg 1 tab PO Q6H PRN PRN Pain 3 days #10 TABLETS 08/30/23 [Rx Last Taken Unknown] Allergy/AdvReac Type Severity Reaction Status Date / Time cephalexin [From Keflex] Allergy Mild Hives Verified 08/30/23 14:07 codeine Allergy Mild Weepy eyes Verified 08/30/23 14:07 Family History Mother Breast cancer CVA (cerebral vascular accident) Cancer skin, uterine Father CVA (cerebral vascular accident) Heart disease Surgical History Gastric bypass status for obesity H/O colonoscopy History of appendectomy History of bilateral knee replacement History of carpal tunnel surgery History of hip surgery History of hysterectomy History of lumbar laminectomy S/P tonsillectomy Social History Smoking Status: Never smoker alcohol intake: current alcohol intake frequency: holidays/special occasions only substance use type: does not use ROS ROS ED Constitutional Constitutional ED: Denies chills or fever(s) Eyes Eyes: Denies blurry vision or change in vision ENT ENT ED: Denies rhinorrhea or sore throat Cardiovascular Cardiovascular: Denies chest pain or palpitations Respiratory/Chest Respiratory/Chest: Denies cough or dyspnea Gastrointestinal Gastrointestinal: Denies nausea or vomiting Genitourinary Genitourinary ED: Denies dysuria or hematuria Musculoskeletal Musculoskeletal: Reports back pain; Denies neck pain Integumentary Reports rash; Denies abscess Neurologic Neurologic: Reports weakness; Denies headache(s) Allergic/Immunologic Allergic/Immunologic ED: Denies mouth swelling or urticaria EXAM Physical Exam Const Vital Signs: 08/30/23 14:05 08/30/23 15:22 08/30/23 16:05 Temperature 97.2 F L Temperature Source Temporal Pulse Rate 125 H 113 H Respiratory Rate 20 H 17 Respiratory Effort Normal Blood Pressure 155/97 H 133/99 H Blood Pressure Mean 116 110 Pulse Ox 97 95 Oxygen Delivery Method Room Air Room Air Positive well nourished and well developed General Appearance ED: well developed and NAD HEENT Reports normocephalic atraumatic; Negative for tenderness Neck full ROM and supple Back/Spine Lumbar Spine / Lower Back: straight leg raise negative bilaterally; Negative for lumbar spinal tenderness or paraspinal muscle tenderness Extremity Extremity Narrative: There is tenderness over the left hip, bilateral knees, and left ankle. There is some ecchymosis over the left knee. There is no deformity noted. Range of motion of the left knee was limited secondary to pain. There is good range of motion of the right knee and left hip. There is good range of motion of the left ankle as well. Pedal pulses are equal bilaterally. Sensation was intact to light touch bilaterally in the lower extremities. Strength is 5/5 bilaterally in the lower extremities. Neuro oriented x3, CN's II-XII intact bilaterally, moves all extremities, no focal motor deficits and no sensory deficits noted Rashaad Coma Scale: document GCS findings Spontaneous Obeys Commands Oriented 15 Sensorium / Orientation: alert Motor Exam: strength 5/5 throughout Psych mental status grossly normal MDM MDM MDM Narrative Medical decision making narrative: Differential diagnosis includes hip fracture, knee fracture, ankle fracture, intracranial bleeding, closed head injury, and contusions. CT scan of the brain will be obtained to assess for intracranial bleeding. X-rays of both knees will be obtained to assess for fracture. X-rays of the left hip will be obtained to assess for hip fracture. X-rays of the left ankle will be obtained to assess for ankle fracture. Radiography Diagnostic Testing: Clinical Impression(s) from Imaging Studies Brain CT 08/30/23 15:01 IMPRESSION: No acute intracranial process. Electronically Signed: Shoaib Harman MD at 15:53 EDT , Hip/Pelvis X-Ray 08/30/23 15:01 IMPRESSION: 1. Status post left hip arthroplasty. Possible lucency around the most inferior derotational screw of the acetabular component which may be due to loosening. 2. Slight eccentric appearance of the femoral and acetabular components of the left hip arthroplasty with femoral component closer to the superolateral margin of the acetabular cup perhaps secondary to component failure. 3. Moderate right hip joint arthrosis with acetabular hypertrophy. 4. Likely heterotopic ossification along the femoral diaphysis extending outside the [id number]. Electronically Signed: Jay Persaud DO at 16:27 EDT , Knee X-Ray 08/30/23 15:01 IMPRESSION: 1. Diffuse soft tissue swelling. 2. Status post total knee arthroplasty. No evidence of malalignment or acute fracture. Electronically Signed: Jay Persaud DO at 16:22 EDT , Knee X-Ray 08/30/23 15:05 IMPRESSION: 1. Transverse fracture versus less likely osteotomy of the proximal fibular diaphysis. 2. Diffuse soft tissue swelling. 3. Status post knee arthroplasty. Normal alignment at the knee. Electronically Signed: Jay Persaud DO at 16:29 EDT , Ankle X-Ray 08/30/23 15:25 IMPRESSION: 1. Soft tissue swelling. Degenerative changes. No definitive acute osseous abnormalities. 2. Lucencies in the medial and lateral talar dome suggesting chronic osteochondral injuries and/or degenerative change. Electronically Signed: Jay Persaud DO at 16:24 EDT , X-rays of the left knee were obtained. There are 4 views. On my independent interpretation, there is a transverse fracture of the proximal fibula. There is no involvement of the tibia. There is no loosening or fracture around the prosthesis. Radiologist also interpreted the x-ray and agrees. X-rays of the right knee were obtained. There are 5 views. On my independent interpretation, there is no acute fracture. There is no loosening of the prosthesis. There is some soft tissue swelling noted. Radiologist also interpreted the x-ray and agrees. X-rays of the left ankle were obtained. There are 3 views. On my independent interpretation, there is no acute fracture. There are degenerative changes noted. Radiologist also interpreted the x-rays and agrees. X-rays of the bilateral hips were obtained. There are 5 views. On my independent interpretation, there is no acute fracture noted. There may be some lucency around the inferior screw of the acetabular component. There is degenerative arthritis of the right hip. Radiologist also interpreted the x-rays and agrees. Treatment and Re-Evaluation Narrative: Patient was advised of her findings. Patient was given a dose of [place] here. Patient was given a prescription for [place]. Patient was instructed to ice and elevate her left knee. Patient was instructed to follow-up with her primary care physician in 5 to 7 days. Patient was also instructed to follow-up with orthopedics in 5 to 7 days. Patient understood and was agreeable with the plan. All questions were answered. Discharge Plan Triage Chief Complaint: Fall ED Provider: Jaylen Webber Dx/Rx/DC Orders Clinical Impression: Closed fracture of fibula, proximal, left, Contusion of multiple sites, Fall Instructions: ED Leg Fracture Prescriptions: New hydrocodone-acetaminophen [hydrocodone-acetaminophen] 5-325 mg tablet 1 tab PO Q6H PRN PRN (Reason: Pain) 3 Days Qty: 10 0RF No Action multivitamin 1 EACH tablet 1 ea PO DAILY Cholecalciferol (Vitamin D3) [Vitamin D3] 5,000 UNIT capsule 10,000 units PO DAILY duloxetine 30 mg capsule,delayed release(DR/EC) 60 mg PO DAILY calcitriol 0.25 mcg capsule 0.25 mcg PO MOWEFR Stand Alone Forms: [facility] Referral Primary Care Provider: Mirian Sanchez Referrals: Mirian Sanchez MD [Primary Care Provider] - 5-7 Days Activity Restrictions/Additional Instructions: Follow-up with orthopedics in 5 to 7 days as well. Disposition Disposition: Home, Self Care
--- NOTE | 2023-08-30 15:01 | RAD_ITS ---
EXAM: XR RIGHT KNEE COMPLETE, 4 OR MORE VIEWS CLINICAL INDICATION: Injury/Pain TECHNIQUE: Four or more views of the right knee. COMPARISON: No relevant prior studies available. FINDINGS: BONES/JOINTS: Status post total knee arthroplasty. No evidence of malalignment or acute fracture. No definitive evidence of hardware loosening. Large amount of intramedullary cement versus intramedullary sclerosis is present. Extensive new bone formation along the posterior cortex of the distal femur. Ossicles of the tibial tubercle. SOFT TISSUES: Diffuse soft tissue swelling. No radiopaque foreign body. RAD/Knee 4 or More Views IMPRESSION: 1. Diffuse soft tissue swelling. 2. Status post total knee arthroplasty. No evidence of malalignment or acute fracture. Electronically Signed: Jay Persaud DO at 16:22 EDT ,
--- NOTE | 2023-08-30 15:01 | RAD_ITS ---
EXAM: XR BILATERAL HIPS WITH PELVIS WHEN PERFORMED, 2 VIEWS CLINICAL INDICATION: Injury/Pain TECHNIQUE: Frontal view of the bilateral hips with pelvis when performed. COMPARISON: No relevant prior studies available. FINDINGS: BONES/JOINTS: Status post left hip arthroplasty. Possible lucency around the most inferior derotational screw of the acetabular component which may be due to loosening. Degenerative changes in the lower lumbar spine and bilateral SI joints. Slight eccentric appearance of the femoral and acetabular components of the left hip arthroplasty with femoral component closer to the superolateral margin of the acetabular cup perhaps secondary to component failure. Moderate right hip joint arthrosis with acetabular hypertrophy. Likely bone island in the intertrochanteric right femur. No displaced fracture. No widening of the pubic symphysis. SOFT TISSUES: Likely heterotopic ossification along the femoral diaphysis extending outside the [id number]. No additional significant abnormality. No soft tissue swelling or gas. RAD/HIP, UNI W/ Pelvis 2-3 Views IMPRESSION: 1. Status post left hip arthroplasty. Possible lucency around the most inferior derotational screw of the acetabular component which may be due to loosening. 2. Slight eccentric appearance of the femoral and acetabular components of the left hip arthroplasty with femoral component closer to the superolateral margin of the acetabular cup perhaps secondary to component failure. 3. Moderate right hip joint arthrosis with acetabular hypertrophy. 4. Likely heterotopic ossification along the femoral diaphysis extending outside the [id number]. Electronically Signed: Jay Persaud, at 16:27 EDT ,
--- NOTE | 2023-08-30 15:01 | CT_ITS ---
INDICATION: Head injury EXAMINATION: CT BRAIN - CT Head or Brain W/O Contrast Injection TECHNIQUE: Multiple axial images were obtained of the head without intravenous contrast. A radiation dose optimization technique was used for this scan. IV Contrast dosage and agent: None. RADIATION DOSAGE (If Supplied By Facility): CTDIvol = ( 44.99 ) mGy, DLP = ( 812.98 ) mGycm COMPARISON: Prior study dated: 04/28/2023 FINDINGS: BRAIN PARENCHYMA: No intra- or extra-axial hemorrhage. No evidence of acute infarct. No intracranial mass or mass effect. There is preservation of the mosher/white matter interface. Periventricular deep white matter changes likely due to chronic microvascular disease. Posterior fossa structures are unremarkable. CSF SPACES: Mild diffuse atrophy. No hydrocephalus. Basal cisterns are patent. CALVARIUM, SKULL BASE, PARANASAL SINUSES AND MASTOID AIR CELLS: Clear. No discrete lytic or blastic abnormalities. ORBITS: Both globes, extraocular muscles, optic nerves and retrobulbar fat appear unremarkable. CT/Brain/Head without Contrast IMPRESSION: No acute intracranial process. Electronically Signed: Shoaib Harman MD at 15:53 EDT ,
--- NOTE | 2023-08-30 15:05 | RAD_ITS ---
EXAM: XR LEFT KNEE COMPLETE, 4 OR MORE VIEWS CLINICAL INDICATION: INJURY pain. TECHNIQUE: Four or more views of the left knee. COMPARISON: No relevant prior studies available. FINDINGS: BONES/JOINTS: Transverse fracture versus less likely osteotomy of the proximal fibular diaphysis. Status post knee arthroplasty. Normal alignment at the knee. No sclerotic or destructive changes observed. SOFT TISSUES: Diffuse soft tissue swelling. No radiopaque foreign body. RAD/Knee 4 or More Views IMPRESSION: 1. Transverse fracture versus less likely osteotomy of the proximal fibular diaphysis. 2. Diffuse soft tissue swelling. 3. Status post knee arthroplasty. Normal alignment at the knee. Electronically Signed: Jay Persaud DO at 16:29 EDT ,
[2023-08-30] MEDS: Morphine 4 MG/ML Syringe IM (15:14)
[2023-08-30 15:15] VITALS: BMI 36.7
[2023-08-30 15:16] VITALS: BMI 36.7
--- NOTE | 2023-08-30 15:25 | RAD_ITS ---
EXAM: XR LEFT ANKLE COMPLETE, 3 OR MORE VIEWS CLINICAL INDICATION: Injury/Pain TECHNIQUE: Frontal, lateral and oblique views of the left ankle. COMPARISON: No relevant prior studies available. FINDINGS: BONES/JOINTS: Lucencies in the medial and lateral talar dome suggesting chronic osteochondral injuries and/or degenerative change. Calcaneal spurs. Minimal dorsal midfoot spurring. No acute fracture. No subluxation. Normal alignment. SOFT TISSUES: Soft tissue swelling. No radiopaque foreign body. RAD/Ankle min 3 Views IMPRESSION: 1. Soft tissue swelling. Degenerative changes. No definitive acute osseous abnormalities. 2. Lucencies in the medial and lateral talar dome suggesting chronic osteochondral injuries and/or degenerative change. Electronically Signed: Jay Persaud DO at 16:24 EDT ,
[2023-08-30 16:05] VITALS: BP 133/99; PULSE 113; RESP 17; O2SAT 95
[2023-08-30] MEDS: HYDROcodone Bitartrate/Apap 5/325 Tablet PO (17:32)
[2023-08-30 17:33] VITALS: BP 148/105; PULSE 111; RESP 18; TEMP 36.7; O2SAT 95
== END 2023-08-30 17:44 | disposition home or self-care (01) ==
PROVIDERS: Emergency Provider Emergency Medicine; PCP Family Medicine; Visit Provider Emergency Medicine
DX: S82.832A Other fracture of upper and lower end of left fibula, initial encounter for closed fracture (principal); W18.30XA Fall on same level, unspecified, initial encounter; Z96.659 Presence of unspecified artificial knee joint; M25.551 Pain in right hip; M25.552 Pain in left hip; Z98.84 Bariatric surgery status; M54.9 Dorsalgia, unspecified
CPT/HCPCS: 70450; 73502; 73564; 73610; 96372; 99282

== ENCOUNTER 2023-10-20 18:35 | Emergency (ER) | payer MEDICARE, SELFPAY ==
[2023-10-20] VITALS (12 sets, daily range): BP systolic 140–175; BP diastolic 93–128; PULSE 85–119; RESP 18–30; TEMP 36–37.1; O2SAT 97–100; BMI 38.9
--- NOTE | 2023-10-20 19:34 | EX.ED.DYSGE1 ---
HPI History of Present Illness Chief Complaint: Hypertension Informant: patient and family Narrative Narrative: 68-year-old female presenting to the emergency room with a concern for hypertension and tachycardia. Patient has an extensive medical history that is very difficult to piece together tonight because she gets out of her care recently here at the hospital. Her local sawmilling operator is out of [facility] in [place]. She states she last saw her 1 month ago. 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 She was reportedly discharged home and followed up with cardiology at [facility] 1 week later. She states they also found a blood clot on the top right part of her heart which she was started on Eliquis for. She was supposed to return 3 months after discharge to see if it had resolved. She has been taking her Eliquis happens about 2 weeks ago when she ran out and has been finding with the pharmacy to get this filled. Patient is also on amiodarone and carvedilol. She takes her carvedilol 25 mg once at night. She states she was on metoprolol before the surgery but had it changed because she was having syncope. She also the past 2 weeks her blood pressures have been significantly elevated. She had not been taking really her vital signs at home but rather had been seen was to orthopedics for a fractured fibula on the left who made note of her blood pressure. Patient notes the occasional right-sided headache right-sided chest pain which she describes as sharp and intermittent. Family states she seems that she has had some difficulty with speech rate lately. This is intermittent. [facility] Medical History Atrial fibrillation Wears contact lenses Wears glasses Post-menopausal Arthritis Non-smoker Shortness of breath on exertion Cyst of left breast Breast pain, left Home Medications ?Medication ?Instructions ?Recorded ?Last Taken ?Type Cholecalciferol (Vitamin D3) 10,000 units PO DAILY 12/22/19 Unknown History [Vitamin D3] multivitamin 1 ea PO DAILY 12/22/19 Unknown History duloxetine 30 mg capsule,delayed 60 mg PO DAILY 09/18/21 Unknown History release calcitriol 0.25 mcg capsule 0.25 mcg PO MOWEFR 12/30/21 Unknown History hydrocodone-acetaminophen 5-325mg 1 tab PO Q6H PRN PRN Pain 3 days 08/30/23 Unknown Rx 5mg-325mg #10 TABLETS apixaban 5 mg tablet (Eliquis) See Rx Instructions .Route 10/20/23 Unknown Rx .COMPLEX #42 tabs carvedilol 25 mg tablet 25 mg PO BID #30 tabs 10/20/23 Unknown Rx Allergy/AdvReac Type Severity Reaction Status Date / Time cephalexin (From Keflex) Allergy Mild Hives Verified 10/20/23 18:37 codeine Allergy Mild Weepy eyes Verified 10/20/23 18:37 Family History Mother Breast cancer CVA (cerebral vascular accident) Cancer skin, uterine Father CVA (cerebral vascular accident) Heart disease Surgical History Hx of CABG History of lumbar laminectomy History of bilateral knee replacement H/O colonoscopy History of hysterectomy History of carpal tunnel surgery History of appendectomy Gastric bypass status for obesity History of hip surgery S/P tonsillectomy Social History Smoking Status: Never smoker alcohol intake: current alcohol intake frequency: holidays/special occasions only substance use type: does not use ROS ROS ED Constitutional Constitutional ED: Denies chills, fever(s) or weight loss Eyes Eyes: Denies change in vision or diplopia ENT ENT ED: Denies ear pain, rhinorrhea or sore throat Cardiovascular Cardiovascular: Reports chest pain, palpitations and racing heartbeat; Denies orthopnea Respiratory/Chest Respiratory/Chest: Denies cough, dyspnea or orthopnea Gastrointestinal Gastrointestinal: Denies abdominal pain, diarrhea, nausea or vomiting Genitourinary Genitourinary ED: Denies dysuria, hematuria or urinary frequency Musculoskeletal Musculoskeletal: Denies arthralgias or myalgias Integumentary Denies abscess or rash Neurologic Neurologic: Reports headache(s); Denies weakness Psychiatric Psychiatric: Denies anxiety, depression, suicidal ideation or suicidal thoughts Endocrine Endocrinology: Denies polydipsia, polyphagia or polyuria Allergic/Immunologic Allergic/Immunologic ED: Denies mouth swelling, tongue swelling or urticaria EXAM Physical Exam Const Vital Signs: 10/20/23 18:38 10/20/23 18:47 10/20/23 20:00 Temperature 96.8 F L Temperature Source Temporal Pulse Rate 97 110 H Respiratory Rate 18 20 H Respiratory Effort Normal Non-Labored Respiratory Pattern Normal Blood Pressure 171/119 H 175/128 H Blood Pressure Mean 136 143 Pulse Ox 99 99 Oxygen Delivery Method Room Air 10/20/23 20:00 10/20/23 20:07 10/20/23 20:15 Temperature Temperature Source Pulse Rate 119 H 118 H Respiratory Rate 30 H Respiratory Effort Respiratory Pattern Blood Pressure 175/128 H 170/119 H Blood Pressure Mean 139 136 Pulse Ox 97 97 Oxygen Delivery Method 10/20/23 20:15 10/20/23 20:46 10/20/23 20:46 Temperature Temperature Source Pulse Rate 96 Respiratory Rate 28 H 21 H Respiratory Effort Respiratory Pattern Blood Pressure 170/119 H 150/93 H 150/93 H Blood Pressure Mean 135 112 111 Pulse Ox 97 97 Oxygen Delivery Method 10/20/23 21:00 10/20/23 21:00 10/20/23 21:17 Temperature Temperature Source Pulse Rate 95 103 H 88 Respiratory Rate 23 H 18 24 H Respiratory Effort Respiratory Pattern Blood Pressure 171/128 H 171/128 H 140/98 H Blood Pressure Mean 142 141 112 Pulse Ox 97 97 Oxygen Delivery Method 10/20/23 21:17 10/20/23 21:30 10/20/23 21:30 Temperature Temperature Source Pulse Rate 87 90 86 Respiratory Rate 26 H 19 H 21 H Respiratory Effort Respiratory Pattern Blood Pressure 140/98 H 143/100 H 143/100 H Blood Pressure Mean 109 114 111 Pulse Ox 97 100 99 Oxygen Delivery Method 10/20/23 21:45 10/20/23 22:00 10/20/23 22:00 Temperature Temperature Source Pulse Rate 91 91 Respiratory Rate 23 H 22 H Respiratory Effort Respiratory Pattern Blood Pressure 151/95 H 146/94 H 146/94 H Blood Pressure Mean 108 111 110 Pulse Ox 98 99 Oxygen Delivery Method 10/20/23 22:15 10/20/23 22:21 Temperature 98.8 F Temperature Source Pulse Rate 85 100 Respiratory Rate 19 H 20 H Respiratory Effort Respiratory Pattern Blood Pressure 161/104 H 160/104 H Blood Pressure Mean 118 122 Pulse Ox 99 99 Oxygen Delivery Method Positive well nourished, well developed and obese General Appearance ED: well developed Nutritional Appearance: obese HEENT Reports normocephalic, head/scalp atraumatic and moist mucous membranes Eyes PERRL and EOMs intact bilaterally Neck no lymphadenopathy, supple and no JVD Resp normal respiratory effort and clear to auscultation bilaterally Cardio no murmurs Rate: tachycardic Rhythm: abnormal rhythm irregularly irregular GI normal to inspection, nondistended, normoactive bowel sounds and non-tender Palpation: soft Back/Spine no CVA tenderness and normal ROM Extremity normal to inspection General Extremety ED: Negative for edema General Extremity: Negative for edema Neuro oriented x3 and CN's II-XII intact bilaterally Sensorium / Orientation: alert Motor Exam: strength 5/5 throughout Psych mental status grossly normal Mood & Affect: Negative for depressed or tearful Skin no rashes or lesions noted and no wounds MDM MDM MDM Narrative Medical decision making narrative: This is a very complicated case as the patient does not really get any care here at [facility] and she has had very extensive cardiac care at 2 other health systems. Basic blood work showed a white count 7.2 hemoglobin 10.3 platelet count of 349. INR 1.3 PTT 31.3 creatinine 0.7 troponin normal at 9 BNP 135. Magnapen interpretation of the chest x-ray is no acute process. CT of the brain shows no acute hemorrhage. CTA of the chest shows no pulmonary embolism. Small bilateral pleural effusions noted. Patient received a dose of hydralazine which is improved her blood pressure she also received a dose of carvedilol which slowed her heart rate down to around 80 still remains in A-fib. She also received a dose of Eliquis. I spoke with cardiology with Dr. Malin. We both are in agreement that the patient will increase her carvedilol to 25 mg twice a day. She needs to be on Eliquis. [facility] write her 2 weeks worth but were not to start the prescription over. I know this can be prohibitively expensive. She needs to talk with her pharmacist and she needs to be in touch with her sawmilling operator. They may have the resources to get her the Eliquis. They need to help her with her blood pressure and rate control. She is the patient needs to schedule appointment with her cardiac surgeon. Each time I have mentioned this to the patient she seems surprised that I am asking her to do this. However she is clear that this was her instructions after her discharge from the hospital. Family was present for the exit interview and notes understanding the plan. History & Record Review Discussion w/independent historian: Patient and Family Lab Data Attestation: I reviewed the patient's lab results. Labs: Laboratory Results - last 24 hr 10/20/23 18:55 WBC 7.2 RBC 4.05 L Hgb 10.3 L Hct 34.9 L MCV 86.2 MCH 25.4 L MCHC 29.5 L RDW Std Deviation 56.4 H RDW Coeff of Carlie 17.7 H Plt Count 349 MPV 9.9 Immature Gran % (Auto) 0.400 Neut % (Auto) 58.6 Lymph % (Auto) 20.9 [place] % (Auto) 9.8 Eos % (Auto) 9.3 H Baso % (Auto) 1.0 Absolute Neuts (auto) 4.2 Absolute Lymphs (auto) 1.51 Nucleated RBC % 0 PT 16.0 H INR 1.3 APTT 31.3 Sodium 139 Potassium 3.4 L Chloride 109 H Carbon Dioxide 26.0 Anion Gap 4 L BUN 16 Creatinine 0.70 Estim Creat Clear Calc 82.70 Est GFR (MDRD) Af Amer 107 Est GFR (MDRD) Non-Af 88 BUN/Creatinine Ratio 23.0 H Glucose 88 Calcium 8.9 Total Bilirubin 0.70 Direct Bilirubin 0.29 AST 13 L ALT 10 L Alkaline Phosphatase 103 Troponin I High Sens 9 B-Natriuretic Peptide 135.4 H Total Protein 6.5 Albumin 3.3 Globulin 3.2 Radiography Diagnostic Testing: Clinical Impression(s) from Imaging Studies Brain CT 10/20/23 19:41 IMPRESSION: 1. No acute intracranial abnormality. There has been no significant change from the reference examination. 2. Stable mild senescent change with small vessel ischemia. Electronically Signed: Roque Garibay MD at 20:36 EDT , Chest X-Ray 10/20/23 20:10 IMPRESSION: Trace haziness in the right base and left midlung which may represent atelectasis. There is no focal consolidation. Electronically Signed: Roque Garibay MD at 20:48 EDT , Chest CTA 10/20/23 20:38 IMPRESSION: 1. No evidence of pulmonary embolus. 2. Small bilateral pleural effusions. 3. There are moderate coronary artery calcifications present. Electronically Signed: Roque Garibay MD at 21:28 EDT , EKG Initial EKG: Attestation: I personally reviewed and interpreted this EKG as follows: Comments: Atrial fibrillation with rapid ventricular response ventricular rate of 103 bpm Differential Diagnosis Chest pain/SOB: pulmonary embolism, ACS, pneumothorax, pneumonia, aortic dissection and CHF Discharge Plan Triage Chief Complaint: Hypertension ED Provider: Ralph Gayle Dx/Rx/DC Orders Clinical Impression: Atrial fibrillation with RVR, Hypertension, Chronic anticoagulation, Atrial thrombosis Instructions: ED AFIB, ED Hypertension, Established Prescriptions: New carvedilol 25 mg tablet 25 mg PO BID Qty: 30 0RF Rx Instructions: must administer with a meal/food Eliquis 5 mg tablet See Rx Instructions .ROUTE .COMPLEX Qty: 42 0RF Rx Instructions: 10 mg p.o. twice daily x 7 days then 5 mg p.o. twice daily thereafter No Action multivitamin 1 EACH tablet 1 ea PO DAILY Cholecalciferol (Vitamin D3) [Vitamin D3] 5,000 UNIT capsule 10,000 units PO DAILY duloxetine 30 mg capsule,delayed release(DR/EC) 60 mg PO DAILY calcitriol 0.25 mcg capsule 0.25 mcg PO MOWEFR hydrocodone-acetaminophen [hydrocodone-acetaminophen] 5-325 mg tablet 1 tab PO Q6H PRN PRN (Reason: Pain) 3 Days Qty: 10 0RF Primary Care Provider: Mirian Sanchez Referrals: Mirian Sanchez MD [Primary Care Provider] - Activity Restrictions/Additional Instructions: You should increase your carvedilol to 25 mg once in the morning once in the evening You must be on Eliquis. You need to call your sawmilling operator tomorrow and tell them you need your Eliquis and you need to be seen urgently for your A-fib with RVR and your hypertension. You need to call your [facility] surgeon to arrange follow-up for the blood clot in your heart Print Language: Yakut Disposition Disposition: Home, Self Care Discharge Date/Time: 10/20/23 22:46
--- NOTE | 2023-10-20 19:41 | CT_ITS ---
EXAM: CT HEAD WITHOUT INTRAVENOUS CONTRAST CLINICAL INDICATION: slurred speech TECHNIQUE: Multiple axial images were obtained of the head without intravenous contrast. This CT exam was performed using one or more of the following dose reduction techniques: automated exposure control, adjustment of the mA and/or kV according to patient size, and/or use of iterative reconstruction technique. COMPARISON: 08/30/2023 FINDINGS: BRAIN AND EXTRA-AXIAL SPACES: The ventricular system and cortical sulci are at the upper lobes in size. There is hypoattenuation in the periventricular white matter. No intra- or extra-axial hemorrhage. No evidence of acute infarct. No intracranial mass or mass effect. There is preservation of the mosher/white matter interface. Posterior fossa structures are unremarkable. Basal cisterns are patent. BONES/JOINTS: Unremarkable. No discrete lytic or blastic abnormalities. SINUSES: Unremarkable as visualized. Clear. MASTOID AIR CELLS: Unremarkable. Clear. ORBITS: Visualized globes, extraocular muscles, optic nerves and retrobulbar fat appear unremarkable. CT/Brain/Head without Contrast IMPRESSION: 1. No acute intracranial abnormality. There has been no significant change from the reference examination. 2. Stable mild senescent change with small vessel ischemia. Electronically Signed: Roque Garibay MD at 20:36 EDT ,
--- NOTE | 2023-10-20 19:41 | EKG12_ITS ---
Test Reason : DYSRHYTHMIA Blood Pressure : / mmHG Vent. Rate : 103 BPM Atrial Rate : 000 BPM P-R Int : 000 ms QRS Dur : 080 ms QT Int : 298 ms P-R-T Axes : 000 074 -06 degrees QTc Int : 390 ms Atrial fibrillation with rapid ventricular response Low voltage QRS Nonspecific T wave abnormality Abnormal ECG Confirmed by Rao Malin ([id number]), editorial writer NIDIA HARDIN ([id number]) on 10/21/2023 8:08:57 AM Referred By: Confirmed By:Rao Malin
[2023-10-20 20:00] LABS: Absolute Lymphocyte Count 1.51 X10^3/uL (0.83-4.51); Absolute Neutrophil Count 4.2 X10^3/uL (2.0-7.7); Basophil# 0.07 X10^3/uL; Eosinophil# 0.67 X10^3/uL; Eosinophils% 9.3 % (0-5); Hematocrit 34.9 % (37-47); Hemoglobin 10.3 g/dL (12.0-15.0); Lymphocyte # 1.51 X10^3/ul (0.83-4.51); Lymphocyte % 20.9 % (19-41); Mean Corp Hgb Conc 29.5 g/dL (32-36); Mean Corpuscular Hgb 25.4 pg (27.0-32.0); Mean Corpuscular Volume 86.2 fL (81-99); Mean Platelet Vol. 9.9 fl (6.2-12.0); Monocyte# 0.71 X10^3/uL; Monocyte% 9.8 % (0-10); NRBC Flagged by Analyzer 0 % (0-5); Neutrophil # 4.24 X10^3/uL (2.7-7.7); Neutrophil % 58.6 % (47-70); Platelet Count 349 K/mm3 (150-450); RBC Distribution Width CV 17.7 % (11.6-14.6); RBC Distribution Width SD 56.4 fl (35.1-43.9); Red Blood Count 4.05 M/mm3 (4.2-5.4); White Blood Count 7.2 K/mm3 (4.4-11.0)
[2023-10-20] MEDS: Carvedilol 25 MG Tablet PO (20:08)
[2023-10-20 20:10] LABS: International Normalized Ratio 1.3; Partial Thromboplast Time 31.3 Seconds (24.1-36.2)
--- NOTE | 2023-10-20 20:10 | RAD_ITS ---
EXAM: XR CHEST, 1 VIEW CLINICAL INDICATION: chest pain TECHNIQUE: Frontal view of the chest. COMPARISON: No relevant prior studies available. FINDINGS: LUNGS AND PLEURAL SPACES: There is minimal haziness at the right base and left midlung. No pneumothorax. No effusion. HEART: Unremarkable. Cardiac silhouette not enlarged. MEDIASTINUM: Central airways and mediastinal contour are unremarkable. BONES/JOINTS: Median sternotomy wires are present. No acute fracture. SOFT TISSUES: Unremarkable. RAD/Chest 1 View (Portable) IMPRESSION: Trace haziness in the right base and left midlung which may represent atelectasis. There is no focal consolidation. Electronically Signed: Roque Garibay MD at 20:48 EDT ,
[2023-10-20 20:21] LABS: BNP,B-Type NATRIURETIC PEPTIDE 135.4 pg/mL (0-100)
[2023-10-20 20:24] LABS: AST(SGOT) 13 U/L (15-37); Alanine Aminotransfer ALT/SGPT 10 U/L (13-56); Albumin, Serum 3.3 g/dL (3.2-5.0); Alkaline Phosphatase 103 U/L (45-117); Anion Gap 4 (5-15); BUN 16 mg/dL (7-18); Bilirubin, Direct 0.29 mg/dL (0.00-0.30); Calcium,Total 8.9 mg/dL (8.5-10.1); Chloride 109 mmol/L (98-107); EST Glomerular Filtration Rate 88 mL/min (>60); Est Glom Filt Rate - Afr Amer 107 mL/min (>60); Globulin 3.2 g/dL (2.2-4.2); Glucose 88 mg/dL (74-106); Potassium 3.4 mmol/L (3.5-5.1); Protein, Total 6.5 g/dL (6.4-8.2); Sodium Level 139 mmol/L (136-145); Troponin-I HS 9 pg/mL (3.0-54.0)
--- NOTE | 2023-10-20 20:38 | CT_ITS ---
EXAM: CT ANGIOGRAPHY CHEST WITHOUT AND WITH INTRAVENOUS CONTRAST CLINICAL INDICATION: pulmonary embolism TECHNIQUE: Helically acquired angiography images were obtained of the chest without and with intravenous contrast. This CT exam was performed using one or more of the following dose reduction techniques: automated exposure control, adjustment of the mA and/or kV according to patient size, and/or use of iterative reconstruction technique. MIP reconstructed images were created and reviewed. CONTRAST: IV 100mL [id number] COMPARISON: No relevant prior studies available. FINDINGS: PULMONARY ARTERIES: Unremarkable. Normal in caliber. No evidence of pulmonary embolism. AORTA: Unremarkable. Normal in caliber. No evidence of dissection. GREAT VESSELS OF AORTIC ARCH: Unremarkable. Normal in caliber. No evidence of dissection. LUNGS AND PLEURAL SPACES: There are small bilateral pleural effusions. No mass. No pneumothorax. HEART: There are moderate coronary artery calcifications present. Heart size is normal. No pericardial effusion. MEDIASTINUM: Unremarkable. No mediastinal or hilar adenopathy. Esophagus is unremarkable. No hiatal hernia. THYROID: Unremarkable. No thyroid lesions. BONES/JOINTS: Unremarkable. No suspicious lytic or blastic abnormality. SOFT TISSUES: There are multiple surgical clips in the upper abdomen. INTRAPERITONEAL SPACE: There is free fluid in the upper abdomen with ascites. CT/CTA Chest W/WO Contrast IMPRESSION: 1. No evidence of pulmonary embolus. 2. Small bilateral pleural effusions. 3. There are moderate coronary artery calcifications present. Electronically Signed: Roque Garibay MD at 21:28 EDT ,
[2023-10-20] MEDS: hydrALAZINE 20 MG/ML Vial 10 MG IV (21:11)
[2023-10-20] MEDS: APIXABAN 5 MG TABLET 10 MG PO (22:19)
== END 2023-10-20 22:46 | disposition home or self-care (01) ==
PROVIDERS: Emergency Provider Emergency Medicine; PCP Family Medicine; Visit Provider Emergency Medicine
DX: I10 Essential (primary) hypertension (principal); I48.91 Unspecified atrial fibrillation; Z79.01 Long term (current) use of anticoagulants; I51.3 Intracardiac thrombosis, not elsewhere classified; Z95.1 Presence of aortocoronary bypass graft; Z79.899 Other long term (current) drug therapy; Z96.653 Presence of artificial knee joint, bilateral; Z90.710 Acquired absence of both cervix and uterus; Z90.49 Acquired absence of other specified parts of digestive tract
CPT/HCPCS: 70450; 71045; 71275; 80048; 80076; 83880; 84484; 85025; 85610; 85730; 93005; 99285; Q9967; A4216

== ENCOUNTER → 2023-11-25 | Outpatient (CLI) | payer MEDICARE, SELFPAY ==
[2023-11-25 09:11] LABS: Mucous, Urine 0 SEEN /hpf (<or=2+)
[2023-11-25 09:43] LABS: Color, Urine Yellow (Yellow); Glucose, Dipstick Normal (Normal); Ketone-Dipstick 5 mg/dl (Negative); Leukocyte Esterase-Dipstick 25 /ul (Negative); Nitrite-Dipstick Positive (Negative); Occult Blood-Urine 10 /ul (Negative); Protein-Dipstick 15 mg/dl (Negative); Urine Bilirubin Dipstick Negative (Negative); Urine Clarity Cloudy (Clear); Urine Urobilinogen 4 mg/dl (Normal); Urine pH 6.5 (5.0 - 8.0)
[2023-11-25 09:49] LABS: Bacteria 4+ /hpf (None Seen); Calcium Oxalate Crystals Ur 2+ /hpf (<or=2+); Red Blood Cells-Urine 0-5 SEEN /hpf (0-5); Squamous Epithelial Cells - UA 5-10 SEEN /hpf (5-10); White Blood Cells 0-5 SEEN /hpf (0-5)
== END | disposition home or self-care (01) ==
PROVIDERS: PCP Family Medicine; Referring Provider Physician Assistant; Visit Provider Physician Assistant
DX: R30.0 Dysuria (principal)
CPT/HCPCS: 81001; 87086; 87088; 87186

== ENCOUNTER 2023-11-27 12:07 | Emergency (ER) | payer MEDICARE, SELFPAY ==
[2023-11-27 12:07] VITALS: BP 132/84; PULSE 90; RESP 14; TEMP 35.7; O2SAT 100
--- NOTE | 2023-11-27 12:23 | CT_ITS ---
STUDY: CT BRAIN WITHOUT CONTRAST REASON FOR EXAM: Female, 68 years old. Head injury RADIATION DOSAGE (If Supplied By Facility): CTDIvol = ( 44.99 ) mGy, DLP = ( 846.73 ) mGycm TECHNIQUE: Transaxial CT imaging of the brain was performed without administration of intravenous contrast material. Individualized dose optimization techniques were used for this CT. COMPARISON: Comparison is made with prior study dated October 20, 2023. FINDINGS: Normal soft tissue structures. There is hyperostosis frontalis internus. There is mild cerebral atrophy with widening of the extra-axial spaces and ventricular dilatation. There are areas of decreased attenuation within the white matter tracts of the supratentorial brain, consistent with microvascular disease changes. Normal basal ganglia and thalami. Normal brainstem. Normal cerebellum. There is no intracranial hemorrhage. There are no findings of an acute ischemic infarction. Normal visualized paranasal sinuses. CT/Brain/Head without Contrast IMPRESSION: Chronic involutional changes of the brain. Electronically Signed: Padreep Lyons MD at 13:08 EDT ,
--- NOTE | 2023-11-27 12:25 | EX.ED.DYSGE1 ---
HPI <FRANCISCO J Trammell - Last Filed: 11/27/23 13:47> History of Present Illness Chief Complaint: Lower Extremity Injury Narrative Narrative: Patient is a 68-year-old female with history of obesity, atrial fibrillation on Eliquis with history of bilateral knee replacements multiple years ago presents emerged apartment with mechanical fall landing on her right side. Patient states that her walker got stuck and she fell to her right side injuring her right knee, hitting the back of her head. Patient denies any LOC however states she did have some vision changes for a second after the fall. She states she is able to ambulate however causes significant pain to the right knee. Patient states she has minor injuries to her left shoulder back however the biggest complaint is her right knee and head. [facility] <FRANCISCO J Trammell - Last Filed: 11/27/23 13:47> [facility] Medical History Atrial fibrillation Wears contact lenses Wears glasses Post-menopausal Arthritis Non-smoker Shortness of breath on exertion Cyst of left breast Breast pain, left Home Medications ?Medication ?Instructions ?Recorded ?Last Taken ?Type Cholecalciferol (Vitamin D3) 10,000 units PO DAILY 12/22/19 Unknown History [Vitamin D3] multivitamin 1 ea PO DAILY 12/22/19 Unknown History duloxetine 30 mg capsule,delayed 60 mg PO DAILY 09/18/21 Unknown History release calcitriol 0.25 mcg capsule 0.25 mcg PO MOWEFR 12/30/21 Unknown History hydrocodone-acetaminophen 5-325mg 1 tab PO Q6H PRN PRN Pain 3 days 08/30/23 Unknown Rx 5mg-325mg #10 TABLETS apixaban 5 mg tablet (Eliquis) See Rx Instructions .Route 10/20/23 Unknown Rx .COMPLEX #42 tabs carvedilol 25 mg tablet 25 mg PO BID #30 tabs 10/20/23 Unknown Rx sulfamethoxazole 800 1 tab PO BID #10 tabs 11/24/23 Unknown Rx mg-trimethoprim 160 mg tablet hydrocodone-acetaminophen 5-325mg 1 tab PO Q6H PRN PRN Pain 3 days 11/27/23 Unknown Rx 5mg-325mg #10 TABLETS Allergy/AdvReac Type Severity Reaction Status Date / Time cephalexin (From Keflex) Allergy Mild Hives Verified 11/27/23 12:08 codeine Allergy Mild Weepy eyes Verified 11/27/23 12:08 Family History Mother Breast cancer CVA (cerebral vascular accident) Cancer skin, uterine Father CVA (cerebral vascular accident) Heart disease Surgical History Hx of CABG History of lumbar laminectomy History of bilateral knee replacement H/O colonoscopy History of hysterectomy History of carpal tunnel surgery History of appendectomy Gastric bypass status for obesity History of hip surgery S/P tonsillectomy Social History Smoking Status: Never smoker alcohol intake: current alcohol intake frequency: holidays/special occasions only substance use type: does not use ROS <FRANCISCO J Trammell - Last Filed: 11/27/23 13:47> ROS ED ROS Narrative Constitutional: Negative for fever, chills, weight loss, weakness Eyes: Negative for vision loss, vision change, double vision ENT: Negative for any sore throat, ear pain, congestion Cardiovascular: Negative for any chest pain, tightness, palpitations Respiratory: Negative for any cough, sputum production, hemoptysis, dyspnea, dyspnea on exertion, orthopnea Gastrointestinal: Negative for any abdominal pain, nausea, vomiting, diarrhea, constipation, blood in stool, blood in vomit : Negative for any urinary frequency, dysuria, retention, blood in urine Muscle skeletal: Negative for any neck pain, back pain. Positive for right knee pain Neurological: Negative for any syncope, dizziness. Positive for headache Skin: Negative for any rashes, itching, abrasions, lacerations Psychiatric: Negative for any depression, anxiety, stress, suicidal ideation, homicidal ideation Hematologic: Negative for any excessive bruising, easy bleeding EXAM <FRANCISCO J Trammell - Last Filed: 11/27/23 13:47> Physical Exam Narrative Exam Narrative: Vital signs reviewed. HEET: Head normocephalic atraumatic, TMs clear bilaterally. Posterior pharynx is clear, moist mucous membranes. Nares clear bilaterally. Pupils are equal round reactive to light. Negative for any hemotympanum or septal hematoma Neck: Supple with no lymphadenopathy or tenderness. No signs of meningismus. Cardiac: Regular rate and rhythm no murmurs gallops or rubs, equal peripheral pulses bilaterally. Respiratory: Lungs clear to auscultation bilaterally. No chest tenderness. Abdomen: Soft, nontender, nondistended. No abdominal bruit or pulsatile masses. No hepatosplenomegaly Extremities: Patient's bilateral lower extremities are extremely large, obese. Patient does have long scars to bilateral knees. No signs of gross trauma or deformity. Minimal flexion to the right lower extremity. It was difficult to perform an examination secondary to the patient having pain with any movement. Also the size of the leg makes things difficult. Neuro: Cranial nerves II through XII intact, no focal neurological deficits. Skin: Clean dry and intact with no rash, purpura, petechiae, vesicles or pustules. Backs/flank: No CVA tenderness, no midline spinal tenderness, no deformity. Psych: Normal mood and affect. No SI, HI or acute psychosis. Const Vital Signs: 11/27/23 12:07 Temperature 96.3 F L Temperature Source Temporal Pulse Rate 90 Respiratory Rate 14 Blood Pressure 132/84 H Blood Pressure Mean 100 Pulse Ox 100 Oxygen Delivery Method Room Air <Dr. Ken Junior MD - Last Filed: 11/28/23 14:31> Physical Exam Const Vital Signs: 11/27/23 12:07 Temperature 96.3 F L Temperature Source Temporal Pulse Rate 90 Respiratory Rate 14 Blood Pressure 132/84 H Blood Pressure Mean 100 Pulse Ox 100 Oxygen Delivery Method Room Air MDM <FRANCISCO J Trammell - Last Filed: 11/27/23 13:47> MDM Radiography Diagnostic Testing: Clinical Impression(s) from Imaging Studies Brain CT 11/27/23 12:23 IMPRESSION: Chronic involutional changes of the brain. Electronically Signed: Pardeep Lyons MD at 13:08 EDT , Knee X-Ray 11/27/23 12:37 IMPRESSION: Status post total knee replacement of the constrained type. Soft tissue swelling. Electronically Signed: Pardeep Lyons MD at 13:09 EDT , Treatment and Re-Evaluation :: Patient is in no obvious respiratory distress vital signs are stable. Patient presents emerged department after mechanical fall. Differential diagnosis includes but is not limited to: Concussion, skull fracture, to cranial bleeding, right knee malalignment, internal derangement, contusion. Patient received a CT scan of the brain, patient received x-rays of the right knee 4 view. All radiologic examinations were read, reviewed by the emergency department attending. From these reads, a plan of care will be put in place. Tylenol be given to the patient. On reevaluation, the patient was still having pain, patient will receive an oxycodone. Patient did receive a CT scan of the brain which showed no fracture, no intracranial bleeding, just evolutionary changes of the brain. This is negative. Knee x-ray 4 view shows status post total knee replacement of the constrained type. There is some soft tissue swelling. At this time, I spoke with the patient, they feel comfortable going home. Patient be given [place] for home. Instructed to follow-up outpatient and continue to use the walker. All questions were answered stable for discharge. <Dr. Ken Junior MD - Last Filed: 11/28/23 14:31> [facility] Narrative Medical decision making narrative: I have personally performed a face to face assessment of the patient and have reviewed the DOROTEO Note. I performed a substantive portion of the visit including all aspects of the following. My baker findings include: History is remarkable for fall with head trauma to the right occipital area. Patient is complaining of pain left frontal area which would suggest a contrecoup mechanism of injury. She does complain of headache. She denies vomiting. She denies double vision blurred vision loss of vision. Denies epistaxis. Denies dental trauma. Says ringing or ears. Denies neck pain. She does complain of knee pain. She had surgery due to traumatic injury 50 years ago. She is on Eliquis for atrial fibrillation. Exam is there is no evidence of trauma to the right occipital area. There is no confines of basilar skull fracture. Pupils equal and reactive. Extract muscle tach. Sclera is anicteric. Neck is supple. There is no pain outpatient. Examination knee reveals a large well-healed scar. Her exam is limited due to body habitus. There is no obvious evidence of trauma i.e. bruising, abrasion or laceration. Alert orient x 3. Cranials 2 through 12 are intact. Motor or sensory intact. Medical Decision Making since patient is complaining of pain opposite side of trauma on Eliquis will obtain CT of the head per the [place] CT head rule and [place] rule to evaluate for intracranial bleed i.e. subdural hematoma, epidural hematoma, traumatic subarachnoid hemorrhage or parenchymal contusion. X-ray of the knee was obtained to evaluate for any bony abnormalities. CT of the head was reviewed by me at 1249. There is no evidence of fracture, subdural hematoma, epidural hematoma, subarachnoid hemorrhage or intraparenchymal contusion. Multiview x-ray of the knee was obtained. Orthopedic hardware is noted with no acute findings i.e. fracture, subluxation, dislocation etc. Other additions or changes: [None] Radiography Diagnostic Testing: Clinical Impression(s) from Imaging Studies Brain CT 11/27/23 12:23 IMPRESSION: Chronic involutional changes of the brain. Electronically Signed: Pardeep Lyons MD at 13:08 EDT , Knee X-Ray 11/27/23 12:37 IMPRESSION: Status post total knee replacement of the constrained type. Soft tissue swelling. Electronically Signed: Pardeep Lyons MD at 13:09 EDT , Discharge Plan Triage Chief Complaint: Lower Extremity Injury ED Midlevel Provider: King Brown ED Provider: Ken Junior Dx/Rx/DC Orders Clinical Impression: CHI (closed head injury), Anticoagulant long-term use, History of chronic atrial fibrillation, Contusion of knee Instructions: After a Concussion, Bone Contusion, ED Soft Tissue Contusion Prescriptions: New hydrocodone-acetaminophen 5-325 mg tablet 1 tab PO Q6H PRN PRN (Reason: Pain) 3 Days Qty: 10 0RF No Action sulfamethoxazole-trimethoprim 800-160 mg tablet 1 tab PO BID Qty: 10 0RF multivitamin 1 EACH tablet 1 ea PO DAILY Cholecalciferol (Vitamin D3) [Vitamin D3] 5,000 UNIT capsule 10,000 units PO DAILY duloxetine 30 mg capsule,delayed release(DR/EC) 60 mg PO DAILY calcitriol 0.25 mcg capsule 0.25 mcg PO MOWEFR hydrocodone-acetaminophen [hydrocodone-acetaminophen] 5-325 mg tablet 1 tab PO Q6H PRN PRN (Reason: Pain) 3 Days Qty: 10 0RF carvedilol 25 mg tablet 25 mg PO BID Qty: 30 0RF Rx Instructions: must administer with a meal/food Eliquis 5 mg tablet See Rx Instructions .ROUTE .COMPLEX Qty: 42 0RF Rx Instructions: 10 mg p.o. twice daily x 7 days then 5 mg p.o. twice daily thereafter Primary Care Provider: Mirian Sanchez Referrals: Mirian Sanchez MD [Primary Care Provider] - Print Language: Omani Disposition Disposition: Home, Self Care Discharge Date/Time: 11/27/23 14:14
[2023-11-27] MEDS: Acetaminophen 500 MG Tablet 1000 MG PO (12:30)
--- NOTE | 2023-11-27 12:37 | RAD_ITS ---
STUDY: X-RAY - RIGHT KNEE REASON FOR EXAM: Female, 68 years old. Knee pain TECHNIQUE: 3 view(s) of the knee. COMPARISON: Comparison is made with prior study dated August 30, 2023. FINDINGS: There is demineralization of the visualized distal femur. There is demineralization of the tibia and fibula. Normal proximal tibiofibular articulation. The patient is status post total knee replacement of the constrained type. Diffuse soft tissue swelling. RAD/Knee 3 Views IMPRESSION: Status post total knee replacement of the constrained type. Soft tissue swelling. Electronically Signed: Pardeep Lyons MD at 13:09 EDT ,
[2023-11-27] MEDS: oxyCODONE 5 MG Tablet PO (13:55)
== END 2023-11-27 14:14 | disposition home or self-care (01) ==
PROVIDERS: Emergency Provider Emergency Medicine; PCP Family Medicine; Visit Provider Emergency Medicine
DX: S09.90XA Unspecified injury of head, initial encounter (principal); I48.20 Chronic atrial fibrillation, unspecified; Z79.01 Long term (current) use of anticoagulants; M25.561 Pain in right knee; E66.9 Obesity, unspecified; Z98.84 Bariatric surgery status; Z95.1 Presence of aortocoronary bypass graft; Z90.710 Acquired absence of both cervix and uterus; Z96.653 Presence of artificial knee joint, bilateral; S80.01XA Contusion of right knee, initial encounter
CPT/HCPCS: 70450; 73562; 99282

== ENCOUNTER → 2023-12-01 | Outpatient (CLI) | payer MEDICARE, SELFPAY ==
--- NOTE | 2023-12-01 10:34 | RAD_ITS ---
STUDY: X-RAY - LUMBAR SPINE REASON FOR EXAM: Female, 68 years old. Low back pain. TECHNIQUE: 4 view(s) of the lumbar spine were obtained. COMPARISON: None FINDINGS: Osteopenia. Normal lumbar lordosis. Rotatory levoscoliosis. Normal vertebral alignment. Diffuse moderate to marked intervertebral disc space narrowing with osteophytes most marked in the lower lumbosacral spine. Multiple clips projected over the left upper quadrant of the abdomen, cholecystectomy clips and left total hip arthroplasty. RAD/L/S Spine Min 4 Views IMPRESSION: Osteopenia with moderate to marked lower thoracic and lumbosacral facet sclerosis. Electronically Signed: Jarrod Jaramillo MD at 12:53 EDT ,
--- NOTE | 2023-12-01 10:34 | RAD_ITS ---
STUDY: X-RAY - PELVIS AND RIGHT HIP REASON FOR EXAM: Female, 68 years old. Pain. TECHNIQUE: 3 views of the pelvis and right hip. COMPARISON: Pelvis and bilateral hip radiographs dated 08/30/2023. FINDINGS: There is a non-specific bowel gas pattern. Normal visualized soft tissue structures. Normal bilateral iliac wings, sacroiliac joints and visualized sacrum. Normal bilateral superior and inferior pubic rami. Normal pubic symphysis. Normal bilateral ischial tuberosities. There are stable mild osteoarthritic changes of the right femoral head with tiny marginal osteophyte formation. There is stable mild osteoarthritic spur formation of the right acetabular rim. Intact right hip joint. There is no demonstrated acute fracture. Again seen is a left hip arthroplasty in place, with no periprosthetic fracture. There is persistent degenerative disc disease in the visualized lumbosacral spine. RAD/HIP, UNI W/ Pelvis 2-3 Views IMPRESSION: Stable mild degenerative arthrosis of the right hip joint, with no acute fracture. Left hip arthroplasty, with no periprosthetic fracture. Persistent degenerative disc disease in the visualized lumbosacral spine. Electronically Signed: Arnie Mckeon MD at 11:13 EDT ,
== END | disposition home or self-care (01) ==
PROVIDERS: PCP Family Medicine; Referring Provider Nurse Practitioner Family; Visit Provider Nurse Practitioner Family
DX: M25.551 Pain in right hip (principal); M54.50 Low back pain, unspecified
CPT/HCPCS: 72110; 73502

== ENCOUNTER → 2024-01-28 | Outpatient (CLI) | payer MEDICARE, SELFPAY ==
--- NOTE | 2024-01-28 12:05 | US_ITS ---
STUDY: THYROID ULTRASOUND REASON FOR EXAM: Female, 68 years old. NODULES TECHNIQUE: Ultrasound evaluation of the thyroid was performed with real-time and static mosher-scale imaging. COMPARISON: None. FINDINGS: RIGHT LOBE: The right lobe of the thyroid gland measures 4.4 x 1.9 x 1.4 cm. There is a heterogeneous echotexture. Nodule 1:13 x 7 x 11 mm solid hypoechoic wider than tall smoothly marginated nodule and no echogenic foci (TR 4) in the anterior right lobe and follow-up ultrasound is recommended in 1 year. Nodule 2:12 x 5 x 10 mm solid hypoechoic wider than tall ill-defined margin nodule and no echogenic foci (TR 4) in the mid right lobe of the thyroid gland and follow-up ultrasound is recommended in 1 year. Nodule 3:14 x 8 x 11 mm solid isoechoic wider than tall ill-defined margin nodule with no echogenic foci (TR 3) in the inferior right lobe consistent with an adenoma. LEFT LOBE: The left lobe of the thyroid gland measures 4.4 x 1.7 x 1.7 cm. There is a heterogeneous echotexture. Nodule 4:8 x 9 x 6 mm mixed cystic and solid isoechoic wire than tall ill-defined margin nodule and no echogenic foci (TR 2) in the superior left lobe consistent with an adenoma. ISTHMUS: The isthmus measures 2 mm thick . The regional lymph nodes are normal. US/Thyroid IMPRESSION: Multinodular thyroid gland and follow-up ultrasound is recommended in 1 year. Electronically Signed: Stevo Marie MD at 11:45 EDT ,
== END | disposition home or self-care (01) ==
LOC: US 12:00
PROVIDERS: PCP Family Medicine; Referring Provider Nurse Practitioner Family; Visit Provider Nurse Practitioner Family
DX: E04.2 Nontoxic multinodular goiter (principal)
CPT/HCPCS: 76536

== ENCOUNTER → 2024-03-22 | Outpatient (CLI) | payer MEDICARE, SELFPAY ==
--- NOTE | 2024-03-22 12:34 | BI_ITS ---
MAMMOGRAPHY - BILATERAL SCREENING REASON FOR EXAM: Female, 68 years old. Routine annual screening examination. PERTINENT HISTORY: Mother with breast cancer. Grandmother with breast cancer. Remote right excisional breast biopsy. Chronic inversion of the left nipple. TECHNIQUE: Digital bilateral breast tricia (3D mammographic acquisition) in the CC and MLO projections. 2-D mediolateral oblique (MLO) and craniocaudad (CC) views of both breasts were obtained. CAD: Full Field Digital Mammography with Computer Added Detection was performed. COMPARISON: Comparison is made with prior study February 19, 2023 and February 11, 2022. FINDINGS: Breast Composition: The breasts are heterogeneously dense, which may obscure small masses. There are no dominant masses or suspicious calcifications. Stable asymmetry of breast tissue with more breast tissue is seen in the upper-outer quadrant of the right breast as compared to the left side. Stable small fat-containing bilateral axillary lymph nodes. No other significant abnormalities are identified. There has been no significant change since the prior study. BI/SCRN MAMM (CAD)W/TRICIA BILAT IMPRESSION: Stable bilateral screening mammogram. Yearly follow-up mammogram recommended. (A) ASSESSMENT CATEGORY: BIRADS Category 2: Benign. A letter regarding these results will be sent to the patient by the facility within 30 days. Approximately 10% of breast cancers are not detected by mammography. A normal mammogram should not delay biopsy of a clinically suspicious abnormality. [id number] Electronically Signed: Pardeep Lyons MD at 13:49 EDT ,
== END | disposition home or self-care (01) ==
LOC: OPBI 12:33
PROVIDERS: PCP Family Medicine; Referring Provider Family Medicine; Visit Provider Family Medicine
DX: Z12.31 Encounter for screening mammogram for malignant neoplasm of breast (principal); Z80.3 Family history of malignant neoplasm of breast
CPT/HCPCS: 77063; 77067

== ENCOUNTER → 2024-09-14 | Outpatient (CLI) | payer MEDICARE, SELFPAY ==
[2024-09-14 18:30] LABS: Absolute Lymphocyte Count 2.02 X10^3/uL (0.83-4.51); Absolute Neutrophil Count 6.1 X10^3/uL (2.0-7.7); Basophil# 0.05 X10^3/uL; Basophil% 0.6 % (0-1); Eosinophil# 0.18 X10^3/uL; Hemoglobin 11.1 g/dL (12.0-15.0); Lymphocyte # 2.02 X10^3/ul (0.83-4.51); Lymphocyte % 22.3 % (19-41); Mean Corp Hgb Conc 30.8 g/dL (32-36); Mean Corpuscular Hgb 25.9 pg (27.0-32.0); Mean Corpuscular Volume 84.1 fL (81-99); Mean Platelet Vol. 9.4 fl (6.2-12.0); Monocyte% 7.7 % (0-10); NRBC Flagged by Analyzer 0 % (0-5); Neutrophil # 6.08 X10^3/uL (2.7-7.7); Platelet Count 367 K/mm3 (150-450); RBC Distribution Width CV 17.5 % (11.6-14.6); RBC Distribution Width SD 53.2 fl (35.1-43.9); Red Blood Count 4.28 M/mm3 (4.2-5.4); White Blood Count 9.1 K/mm3 (4.4-11.0)
[2024-09-14 20:50] LABS: ALB/GLOB Ratio 1.5 RATIO (0.9-2.4); AST(SGOT) 19 U/L (<=31); Alanine Aminotransfer ALT/SGPT 11 U/L (<=34); Albumin, Serum 4.1 g/dL (3.4-4.8); Alkaline Phosphatase 91 U/L (35-104); Anion Gap 13 (5-15); BUN 23 mg/dL (4-19); BUN/Creat Ratio 30.4 RATIO (10-20); Calcium,Total 9.7 mg/dL (7.6-11.0); Chloride 107 mmol/L (98-108); Creatinine, Serum 0.75 mg/dL (0.70-1.20); EST Glomerular Filtration Rate 85 (>60); Globulin 2.8 g/dL (2.2-4.2); Glucose 81 mg/dL (70-99); Potassium 4.4 mmol/L (3.3-5.1); Protein, Total 6.9 g/dL (5.9-8.4); Sodium Level 139 mmol/L (133-145); Total Bilirubin 0.23 mg/dL (0.00-1.30)
[2024-09-14 21:03] LABS: Ferritin 13 ng/mL (22-378); Vitamin B12 194 pg/mL (180-914); Vitamin D,25 Hydroxy 74.8 ng/mL (30-100)
[2024-09-15 14:50] LABS: Iron 25 ug/dL (50-170)
== END | disposition home or self-care (01) ==
PROVIDERS: PCP Family Medicine; Visit Provider Nurse Practitioner Family
DX: E04.2 Nontoxic multinodular goiter (principal); R53.83 Other fatigue; I10 Essential (primary) hypertension; E55.9 Vitamin D deficiency, unspecified; E61.1 Iron deficiency
CPT/HCPCS: 36415; 80053; 82306; 82607; 82728; 83540; 84439; 84443; 85025

== ENCOUNTER → 2024-09-17 | Outpatient (CLI) | payer MEDICARE, SELFPAY ==
--- NOTE | 2024-09-17 12:07 | US_ITS ---
PROCEDURE: THYROID 09/17/2024 REASON FOR EXAM: ASSES FOR NODULE CHANGES/ENLARGED LEFT LYMPH NODE TECHNIQUE: Thyroid ultrasound COMPARISON: Comparison is made with prior examination dated January 28, 2024. FINDINGS: Right thyroid lobe measures 4.9 cm x 2 cm x 2.0 cm. Left thyroid lobe measures 5.3 cm x 1.5 cm x 1.7 cm. Isthmus thickness is4 mm. Thyroid Size: Enlarged left lobe of the thyroid. Background Echotexture: Heterogeneous Thyroid Nodules: Stable complex cystic nodule in the upper aspect of the right lobe of the thyroid measuring 1.2 cm 1.1 cm x 0.9 cm. Similar-appearing nodule is also seen measuring 1 cm x 1 cm x 0.6 cm. There is also evidence of a 1.1 cm x 1.1 cm x 0.7 cm isoechoic nodule in the lower lobe. Multiple nodules are once again seen. The largest nodule measures 1.1 cm 1 cm 0.9 cm. Other: Incidental note is made of a 1.4 cm x 0.8 cm x 0.6 cm left submandibular lymph node. US/Thyroid IMPRESSION: OVERALL FINAL ASSESSMENT: TI-RADS 3: Probably benign nodules (<5% risk). Stable examination. Reading Location: [place]
== END | disposition home or self-care (01) ==
PROVIDERS: PCP Family Medicine; Referring Provider Nurse Practitioner Family; Visit Provider Nurse Practitioner Family
DX: E04.2 Nontoxic multinodular goiter (principal); R59.0 Localized enlarged lymph nodes
CPT/HCPCS: 76536

== ENCOUNTER 2024-10-14 18:40 | Emergency (ER) | payer MEDICARE, SELFPAY ==
[2024-10-14 18:42] VITALS: BP 124/98; PULSE 62; RESP 16; TEMP 36.7; O2SAT 100
--- NOTE | 2024-10-14 19:16 | CT_ITS ---
PROCEDURE: BRAIN/HEAD WITHOUT CONTRAST 10/14/2024 REASON FOR EXAM: TRAUMA TECHNIQUE: Head CT without intravenous contrast. Coronal and Sagittal reconstruction series were provided. One or more dose reduction techniques were used (e.g., Automated exposure control, adjustment of the mA and/or kV according to patient size, use of iterative reconstruction technique. RADIATION DOSE SUMMARY: CTDlvol: 45.0 mGy DLP: 864 mGycm COMPARISON: CT head on 11/27/2023 FINDINGS: Brain: No acute intracranial hemorrhage, mass effect, or midline shift. Low density in the periventricular white matter suggests chronic small vessel ischemic changes. CSF Spaces: Mild generalized cerebral atrophy Sinuses/Mastoids: Clear at visualized levels Bones: No displaced calvarial fracture. No significant scalp hematoma. Soft tissue debris in the external auditory canals, likely cerumen. Status post bilateral cataract extraction. CT/Brain/Head without Contrast IMPRESSION: No acute intracranial abnormality. Senescent changes. Reading Location: [place]
--- NOTE | 2024-10-14 19:16 | EDS_ITS ---
HPI History of Present Illness Chief Complaint: Head Injury Narrative Narrative: 69-year-old female past medical history of open heart surgery, atrial fibrillation, on Eliquis presents status post fall today at approximately 6:02 PM, just over an hour ago. She relays history that she was at the refrigerator trying to remove something, and fell backwards. She struck her head but denies any loss of consciousness. She has slight headache on the right side of her head and states that her ears feel full. She also complains of neck pain that is somewhat exacerbated by motion. No other injury. Given that she is on Eliquis, she was told that she should come to the emergency department when she sustains injury. [facility] Medical History Benign cardiac neoplasm Impacted cerumen of both ears Tibia fracture Atrial fibrillation Wears contact lenses Wears glasses Post-menopausal Arthritis Non-smoker Shortness of breath on exertion Cyst of left breast Breast pain, left Home Medications ?Medication ?Instructions ?Recorded ?Last Taken ?Type Cholecalciferol (Vitamin D3) 10,000 units PO DAILY Unknown History [Vitamin D3] apixaban 5 mg tablet (Eliquis) See Rx Instructions .Ro christel 10/20/23 Unknown Rx .COMPLEX #42 tabs amiodarone 200 mg tablet 200 mg PO QDAY 10/14/24 Unkn own History carvedilol 25 mg tablet 25 mg PO BID 10/14/24 Unknow n History diltiazem HCl 120 mg 120 mg PO QAM 10/14/24 Unkno wn History capsule,extended release 24 hr (Cartia XT) duloxetine 60 mg capsule,delayed 60 mg PO DAILY Unknown History release ginko bilboa PO 10/14/24 Unknown History lutein 6 mg capsule 6 mg PO QDAY 10/14/24 Unknow n History oxybutynin chloride 5 mg 5 mg PO DAILY 10/14/24 Unkno wn History tablet,extended release 24 hr turmeric 400 mg capsule mg PO 10/14/24 Unknown Histo ry Allergy/AdvReac Type Severity Reaction Status Date / Time cephalexin (From Keflex) Allergy Mild Hives Verified 10/14/24 18:44 codeine Allergy Mild Weepy eyes Verified 10/14/24 18:44 Family History Mother Breast cancer CVA (cerebral vascular accident) Cancer , uterine Father CVA (cerebral vascular accident) Heart disease Cancer skin Grandmother Breast cancer Surgical History History of open heart surgery Hx of CABG History of lumbar laminectomy History of bilateral knee replacement H/O colonoscopy History of hysterectomy History of carpal tunnel surgery History of appendectomy Gastric bypass status for obesity History of hip surgery S/P tonsillectomy Social History Smoking Status: Never smoker alcohol intake: current alcohol intake frequency: holidays/special occasions only substance use type: does not use ROS ROS ED ROS Narrative Review of systems positive for mild headache with history of trauma to the head, head injury on anticoagulation. Positive neck pain worse with movement. No paresthesias of arms or legs after fall, no prodromal chest pain or shortness of breath. Denies other injuries. EXAM Physical Exam Narrative Exam Narrative: GCS 15. ABCs are intact. Neck is soft and supple with mild diffuse tenderness to palpation but no bony step-off. Able to raise arms above head without difficulty. No crepitance of skull. PERRL, EOMI. Cardiovascular examination reveals regular rate and rhythm with intermittent tachycardia. Lungs are clear to auscultation bilaterally. Abdomen is soft and nontender without guarding or rebound. Positive bowel sounds. Neurological examination nonfocal, nonlateralizing. Neurovascular intact in bilateral upper and lower extremities. Const Vital Signs: 10/14/24 18:42 10/14/24 19:01 10/14/24 20:10 Temperature 98.1 F Temperature Source Temporal Pulse Rate 62 120 H Respiratory Rate 16 22 H Respiratory Effort Normal Respiratory Depth Normal Respiratory Pattern Normal Blood Pressure 124/98 H 124/81 H Blood Pressure Mean 106 95 Pulse Ox 100 98 Oxygen Delivery Method Room Air Room Air Room Air 10/14/24 20:30 10/14/24 21:00 Temperature Temperature Source Pulse Rate 119 H 120 H Respiratory Rate 23 H 21 H Respiratory Effort Respiratory Depth Respiratory Pattern Blood Pressure 129/80 H 137/76 H Blood Pressure Mean 96 96 Pulse Ox 99 98 Oxygen Delivery Method Room Air Room Air MDM MDM MDM Narrative Medical decision making narrative: Differential diagnosis includes but not limited to intracranial hemorrhage with history of head injury on anticoagulation versus mild concussion versus neck fracture versus cervical strain. I do not feel laboratory work is currently indicated. However, CT of the brain and CT of the cervical spine will be obtained. I reviewed the radiology report of the CT of the brain and of the cervical spine. CT of the brain shows no acute intracranial hemorrhage, no skull fracture, there are senescent changes. CT of the cervical spine shows no acute fracture or subluxation. There is an 8 mm right thyroid lobe nodule. Patient is aware of this and states that she was being seen for this earlier today. At this point in time, I feel she can be discharged to follow-up with her primary care provider for her closed head injury on anticoagulation. She can take [id number]-dwuvspo medications as needed for pain. Return instructions reviewed. Disposition is discharged home in stable condition. History & Record Review Discussion w/independent historian: Patient Additional record(s) reviewed:: Prior ED visit (Long-term use of antic oagulation.) Radiography Diagnostic Testing: Clinical Impression(s) from Imaging Studies Brain CT 10/14/24 19:16 IMPRESSION: No acute intracranial abnormality. Senescent changes. Reading Location: [id number] Cervical Spine CT 10/14/24 19:16 IMPRESSION: No acute fracture or traumatic subluxation. Degenerative changes without high-grade canal stenosis or neural foraminal narrowing. 8 mm right thyroid lobe low-attenuation nodule. Reading Location: [facility] Discharge Plan Triage Chief Complaint: Head Injury ED Provider: Piter Lehman Dx/Rx/DC Orders Clinical Impression: Fall, Closed head injury, oil heaterman current use of anticoagulant, Cervical st rain Instructions: ED Head Injury (Adult), ED Neck Sprain or Strain Prescriptions: No Action amiodarone 200 mg tablet 200 mg PO QDAY diltiazem HCl [Cartia XT] 120 mg capsule,extended release 24hr 120 mg PO QAM carvedilol 25 mg tablet 25 mg PO BID Rx Instructions: must administer with a meal/food ginko bilboa PO lutein 6 mg capsule 6 mg PO QDAY Rx Instructions: give with meal/snack turmeric 400 mg capsule PO Cholecalciferol (Vitamin D3) [Vitamin D3] 5,000 UNIT capsule 10,000 units PO DAILY Eliquis 5 mg tablet See Rx Instructions .ROUTE .COMPLEX Qty: 42 0RF Rx Instructions: 10 mg p.o. twice daily x 7 days then 5 mg p.o. twice daily thereafter oxybutynin chloride 5 mg tablet extended release 24hr 5 mg PO DAILY duloxetine 60 mg capsule,delayed release(DR/EC) 60 mg PO DAILY Primary Care Provider: Mirian Sanchez Referrals: Mirian Sanchez MD [Primary Care Provider] - 1 Week if not improving Activity Restrictions/Additional Instructions: Return to the emergency department with new or worsening symptoms. Follow-up with your primary care provider in 7-10 days if not improving. Fgmu-rla-ixqowyf medications as needed for pain. Print Language: Divehi Disposition Disposition: Home, Self Care
--- NOTE | 2024-10-14 19:16 | CT_ITS ---
PROCEDURE: SPINE CERVICAL WITHOUT CONTRAS 10/14/2024 REASON FOR EXAM: TRAUMA, PAIN TECHNIQUE: Cervical spine CT without contrast. Coronal and Sagittal reconstruction series were provided. One or more dose reduction techniques were used (e.g., Automated exposure control, adjustment of the mA and/or kV according to patient size, use of iterative reconstruction technique COMPARISON: None FINDINGS: Alignment: Straightening of the cervical lordosis. Grade 1 anterolisthesis of C3 on C4. Atlantoaxial interval is maintained. Vertebrae: Vertebral body heights are maintained. Mild multilevel loss of disc spaces. No acute fracture or traumatic subluxation. No suspicious lytic or blastic lesion. Multilevel degenerative changes, without high-grade canal stenosis or neural foraminal narrowing. Soft Tissues: 8 mm right thyroid lobe low-attenuation nodule.. Other: Imaged lung oscar are clear. CT/Spine Cervical without Contras IMPRESSION: No acute fracture or traumatic subluxation. Degenerative changes without high-grade canal stenosis or neural foraminal narr owing. 8 mm right thyroid lobe low-attenuation nodule. Reading Location: [facility]
[2024-10-14 20:10] VITALS: BP 124/81; PULSE 120; RESP 22; O2SAT 98
[2024-10-14 20:30] VITALS: BP 129/80; PULSE 119; RESP 23; O2SAT 99
[2024-10-14 21:00] VITALS: BP 137/76; PULSE 120; RESP 21; O2SAT 98
[2024-10-14 21:01] VITALS: BP 130/75; PULSE 120; RESP 17; TEMP 36.7; O2SAT 96
== END 2024-10-14 21:09 | disposition home or self-care (01) ==
PROVIDERS: Emergency Provider Emergency Medicine; PCP Family Medicine; Visit Provider Emergency Medicine
DX: S09.90XA Unspecified injury of head, initial encounter (principal); Z79.01 Long term (current) use of anticoagulants; Z90.710 Acquired absence of both cervix and uterus; S16.1XXA Strain of muscle, fascia and tendon at neck level, initial encounter; Z98.84 Bariatric surgery status; Z95.1 Presence of aortocoronary bypass graft; W01.198A Fall on same level from slipping, tripping and stumbling with subsequent striking against other object, initial encounter
CPT/HCPCS: 70450; 72125; 99282; A4216

== ENCOUNTER 2024-12-17 07:47 | Day surgery (SDC) | payer MEDICARE, SELFPAY ==
--- NOTE | 2024-12-15 20:20 | PAT.ANESEVAL ---
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 When Was Last Pacemaker Check QUESTION #4 FULL TEXT: You/Your Family Experience fever (hyperthermia) with Anesthesia Last Oral Intake Last Oral intake: Last Oral Intake NPO since Meds taken in AM with sips of water? Meds patient instructed to take am of surgery PONV PONV - promotions firm accounts manager: PONV - promotions firm accounts manager Female Yes 12/15/24 10:26 HX of Motion Sickness No 12/15/24 10:26 HX of N/V After Surgery No 12/15/24 10:26 Non-Smoker Yes 12/15/24 10:26 Duration of Surgery greater No 12/15/24 10:26 than 60 minutes Number of Risk Factors 2 12/15/24 10:26 PONV Score Moderate Risk 12/15/24 10:26 Height & Weight Height & Weight: Anesthesia: Height & Weight Height 5 ft 7 in 11/09/24 12:43 Respiratory Assessment Respiratory Assessment - promotions firm accounts manager: Respiratory Tract Infection Hx - promotions firm accounts manager Hx Respiratory Tract Infection No 12/15/24 10:26 STOP Sleep Apnea STOP Sleep Apnea - promotions firm accounts manager: STOP Sleep Apnea - promotions firm accounts manager Hx Hypertension No 12/15/24 10:26 Hx Sleep Apnea No 12/15/24 10:26 CPAP BIPAP Do you snore loudly (louder No 12/15/24 10:26 than talking or can be heard Do you often feel tired/ No 12/15/24 10:26 fatigued/ sleepy during daytime? Has anyone observed you stop No 12/15/24 10:26 breathing during sleep? STOP Results Negative 12/15/24 10:26 QUESTION #5 FULL TEXT : Do you snore loudly (louder than talking or can be heard through closed doors)? 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 Specify any problems Hx of Preganancy in last 3 No 12/15/24 10:26 Months Nurse Filling Out Transfusion [facility] 12/15/24 10:26 & Questions: Date: 12/15/24 12/15/24 10:26 Time: 10:33 12/15/24 10:26 Patient unable to answer at this time (ie. confused, unrespo /Reproduction History /Reproductive History - promotions firm accounts manager: /Reproductive Hx- promotions firm accounts manager Hx Now No 12/15/24 10:26 Gestational Age (in weeks): EDC: Hx Hx Para Hx Section SAB No 12/15/24 10:26 [facility] Medical History (Updated 12/15/24 @ 10:32 by Sarah Melchor) Ambulates with cane Low iron History of echocardiogram Cardiology follow-up encounter Benign cardiac neoplasm Impacted cerumen of both ears Tibia fracture Atrial fibrillation Wears contact lenses Wears glasses Post-menopausal Arthritis Non-smoker Shortness of breath on exertion Cyst of left breast Breast pain, left Home Medications ?Medication ?Instructions ?Recorded ?Last Taken ?Type Cholecalciferol (Vitamin D3) 10,000 units PO DAILY 12/22/19 Unknown History [Vitamin D3] apixaban 5 mg tablet (Eliquis) See Rx Instructions .Route 10/20/23 12/13/24 Rx .COMPLEX #42 tabs amiodarone 200 mg tablet 200 mg PO QDAY 10/14/24 Unknown History carvedilol 25 mg tablet 25 mg PO BID 10/14/24 Unknown History diltiazem HCl 120 mg 120 mg PO QAM 10/14/24 Unknown History capsule,extended release 24 hr (Cartia XT) duloxetine 60 mg capsule,delayed 60 mg PO DAILY 10/14/24 Unknown History release ginko bilboa 1 tab PO DAILY 10/14/24 Unknown History lutein 6 mg capsule 6 mg PO QDAY 10/14/24 Unknown History oxybutynin chloride 5 mg 5 mg PO DAILY 10/14/24 Unknown History tablet,extended release 24 hr turmeric 400 mg capsule 400 mg PO DAILY 10/14/24 Unknown History Allergy/AdvReac Type Severity Reaction Status Date / Time cephalexin (From Keflex) Allergy Mild Hives Verified 12/15/24 10:22 codeine Allergy Mild Weepy eyes Verified 12/15/24 10:22 Family History Mother Breast cancer CVA (cerebral vascular accident) Cancer , uterine Father CVA (cerebral vascular accident) Heart disease Cancer skin Grandmother Breast cancer Surgical History (Updated 12/15/24 @ 10:32 by Sarah Melchor) History of heart surgery History of open heart surgery Hx of CABG History of lumbar laminectomy History of bilateral knee replacement H/O colonoscopy History of hysterectomy History of carpal tunnel surgery History of appendectomy Gastric bypass status for obesity History of hip surgery S/P tonsillectomy Social History Smoking Status: Never smoker alcohol intake: current alcohol intake frequency: holidays/special occasions only substance use type: does not use Audit: Pertinent Findings HISTORY of Pertinent Findings History of Pertinent Findings: Patient had a interatrial septal lipoma and she is status post lipoma resection with pericardial patch, CABG x 1 RAE to LAD and Maze procedure. She was last seen by her dupligraph operator on July 13, 2004, Dr. Raissa torres at [facility]. At this visit she was in continued atrial fibrillation and they discontinued amiodarone and continued her oral anticoagulation. She reported that they would need a repeat echocardiogram at their next office visit which is scheduled around April 2025. After her CABG and open heart surgery she unfortunately had a fall and fractured her left femur. She has been in persistent atrial fibrillation since her surgery. Pertinent Findings EKG Perinent findings: 10/20/2023: Vent. Rate : 103 BPM Atrial Rate : 000 BPM P-R Int : 000 ms QRS Dur : 080 ms QT Int : 298 ms P-R-T Axes : 000 074 -06 degrees QTc Int : 390 ms Atrial fibrillation with rapid ventricular response Low voltage QRS Nonspecific T wave abnormality Abnormal ECG Echo (EF%) pertinent findings: July 2022 left ventricular EF estimated around 70% with normal wall thickness and normal systolic function. Recommendation Anesthesia Recommendation Anesthesia recommendation: OPTIMIZED for anesthesia
[2024-12-17] VITALS (8 sets, daily range): BP systolic 118–124; BP diastolic 70–81; PULSE 79–104; RESP 16; TEMP 36.1–36.9; O2SAT 96–99; BMI 33.2
[2024-12-17] MEDS: Lactated Ringers 1,000 ML 15 ML IV (08:29)
--- NOTE | 2024-12-17 08:42 | PCM.PRE.AN2 ---
ASA Classification* ASA Classification ASA Classification: 3 Assessment & Plan Anesthesia* Anesthesia Assessment Anesthesia Assessment: Discussed sedation and/or anesthesia options, risks, benefits, and alternatives with patient/parents/legal guardian/POA. Questions invited. The patient/parents/legal guardian/POA seems to understand and agrees to proceed with anesthesia plan. Reviewed the physical assessment, medical history, allergy history and patient home medications list prior to surgery/procedure/anesthetic and documented any changes. Performed airway and anesthesia risk assessments. Anesthesia Type Anesthesia Type: MAC History Source History Obtained from:: Patient and Chart Anesthesia Focused Assessment* Temperature: 98.4 F Pulse Rate: 79 Blood Pressure: 124/77 Respiratory Rate: 16 Pulse Ox: 98 Oxygen Delivery Method: Room Air Airway Assessment Mouth opens: >3 cm Mallampati Score: IV Teeth Condition: Caps/Crowns (Patient has a couple of caps They are tight.) Neck Range of motion (ROM): Limited ROM (Slight Decrease) Labs Anesthesia Preop lab: CBC WBC 9.1 K/mm3 (4.4-11.0) 09/14/24 15:09/14/24 RBC 4.28 M/mm3 (4.2-5.4) 09/14/24 15:08 09/14/24 Hgb 11.1 g/dL (12.0-15.0) L 09/14/24 15:08 09/14/24 Hct 36.0 % (37-47) L 09/14/24 15:08 09/14/24 Plt Count 367 K/mm3 (150-450) 09/14/24 15:08 09/14/24 CHEMISTRY Potassium 4.4 mmol/L (3.3-5.1) 09/14/24 15:08 09/14/24 Sodium 139 mmol/L (133-145) 09/14/24 15:09/14/24 BUN 23 mg/dL (4-19) H 09/14/24 15:08 09/14/24 Creatinine 0.75 mg/dL (0.70-1.20) 09/14/24 15:08 09/14/24 Glucose 81 mg/dL (70-99) 09/14/24 15:08 09/14/24 TSH 1.050 uIU/mL (0.300-4.200) 09/14/24 15:08 09/14/24 COAG PT 16.0 SECONDS (11.7-14.9) H 10/20/23 18:55 10/20/23 Pre-Assessment Diagnosis/Proposed Procedure Planned Operative Procedure(s): EGD Anesthesia History 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 When Was Last Pacemaker Check QUESTION #4 FULL TEXT: You/Your Family Experience fever (hyperthermia) with Anesthesia Last Oral Intake Last Oral intake: Last Oral Intake NPO since 22:00 12/17/24 08:27 Meds taken in AM with sips of water? Meds patient instructed to take am of surgery PONV PONV - production administrative assistant: PONV - production administrative assistant Female Yes 12/15/24 10:26 HX of Motion Sickness No 12/15/24 10:26 HX of N/V After Surgery No 12/15/24 10:26 Non-Smoker Yes 12/15/24 10:26 Duration of Surgery greater No 12/15/24 10:26 than 60 minutes Number of Risk Factors 2 12/15/24 10:26 PONV Score Moderate Risk 12/15/24 10:26 Height & Weight Height & Weight: Anesthesia: Height & Weight Height 5 ft 7 in 12/17/24 08:27 Weight: 96.3 kg 12/17/24 08:27 Body Mass Index (BMI) 33.2 12/17/24 08:27 Respiratory Assessment Respiratory Assessment - production administrative assistant: Respiratory Tract Infection Hx - production administrative assistant Hx Respiratory Tract Infection No 12/15/24 10:26 STOP Sleep Apnea STOP Sleep Apnea - production administrative assistant: STOP Sleep Apnea - production administrative assistant Hx Hypertension No 12/15/24 10:26 Hx Sleep Apnea No 12/15/24 10:26 CPAP BIPAP Do you snore loudly (louder No 12/15/24 10:26 than talking or can be heard Do you often feel tired/ No 12/15/24 10:26 fatigued/ sleepy during daytime? Has anyone observed you stop No 12/15/24 10:26 breathing during sleep? STOP Results Negative 12/15/24 10:26 QUESTION #5 FULL TEXT : Do you snore loudly (louder than talking or can be heard through closed doors)? Tobacco Use History Tobacco Use History - production administrative assistant: Tobacco Use History - production administrative assistant Tobacco Use Smoking Status Never smoker 12/15/24 10:26 Hx Tobacco Use No 12/15/24 10:26 Years Smoking Packs Smoked per Day Smoking Cessation Date was within the last 15 years Hx Smoking Cessation Date Hx Smoking Cessation Counseling Hematologic Medial History Hematologic Hx - production administrative assistant: Hematologic Medical Hx - shaper hand Hx of Blood Transfusion No 12/15/24 10:26 Hx of Transfusion in last 3 No 12/15/24 10:26 Months Date of Last Transfusion (if within last 3 months) Ever experience any problems No 12/15/24 10:26 with transfusion(s)? Specify any problems Hx of Preganancy in last 3 No 12/15/24 10:26 Months Nurse Filling Out Transfusion [facility] 12/15/24 10:26 & Questions: Date: 12/15/24 12/15/24 10:26 Time: 10:33 12/15/24 10:26 Patient unable to answer at this time (ie. confused, unrespo /Reproduction History /Reproductive History - production administrative assistant: /Reproductive Hx- production administrative assistant Hx Now No 12/15/24 10:26 Gestational Age (in weeks): EDC: Hx Hx Para Hx Section SAB No 12/15/24 10:26 Active Medications Active Medications: Current Medications Generic Name Dose Route Start Last Admin Trade Name Freq PRN Reason Stop Dose Admin Lactated Ringer's 1,000 mls @ 15 mls/hr 12/17/24 08:30 12/17/24 08:29 IV 15 mls/hr .Q48H RIMMA Administration PFSH Medical History Ambulates with cane Low iron History of echocardiogram Cardiology follow-up encounter Benign cardiac neoplasm Impacted cerumen of both ears Tibia fracture Atrial fibrillation Wears contact lenses Wears glasses Post-menopausal Arthritis Non-smoker Shortness of breath on exertion Cyst of left breast Breast pain, left Home Medications ?Medication ?Instructions ?Recorded ?Last Taken ?Type Cholecalciferol (Vitamin D3) 10,000 units PO DAILY 12/22/19 Unknown History [Vitamin D3] apixaban 5 mg tablet (Eliquis) See Rx Instructions .Route 10/20/23 12/13/24 Rx .COMPLEX #42 tabs amiodarone 200 mg tablet 200 mg PO QDAY 10/14/24 Unknown History carvedilol 25 mg tablet 25 mg PO BID 10/14/24 Unknown History diltiazem HCl 120 mg 120 mg PO QAM 10/14/24 Unknown History capsule,extended release 24 hr (Cartia XT) duloxetine 60 mg capsule,delayed 60 mg PO DAILY 10/14/24 Unknown History release ginko bilboa 1 tab PO DAILY 10/14/24 Unknown History lutein 6 mg capsule 6 mg PO QDAY 10/14/24 Unknown History oxybutynin chloride 5 mg 5 mg PO DAILY 10/14/24 Unknown History tablet,extended release 24 hr turmeric 400 mg capsule 400 mg PO DAILY 10/14/24 Unknown History Allergy/AdvReac Type Severity Reaction Status Date / Time cephalexin (From Keflex) Allergy Mild Hives Verified 12/17/24 08:26 codeine Allergy Mild Weepy eyes Verified 12/17/24 08:26 Family History Mother Breast cancer CVA (cerebral vascular accident) Cancer , uterine Father CVA (cerebral vascular accident) Heart disease Cancer skin Grandmother Breast cancer Surgical History History of heart surgery History of open heart surgery Hx of CABG History of lumbar laminectomy History of bilateral knee replacement H/O colonoscopy History of hysterectomy History of carpal tunnel surgery History of appendectomy Gastric bypass status for obesity History of hip surgery S/P tonsillectomy Social History Smoking Status: Never smoker alcohol intake: current alcohol intake frequency: holidays/special occasions only substance use type: does not use Review of Systems (Anesthesia) ROS Narrative System reviewed and no additional complaints, except as documented.
--- NOTE | 2024-12-17 08:47 | PCM.HP.BLA ---
History and Physical Date of Admission: 12/17/24 Date of Service: 11/09/24 MR#: [id number] Acct: [id number] Name: HEBER GOMEZ Rep #: [id number] : 1955 Provider: Dr. Rao Perez MD Age/Sex: 69/F Location: [facility] Status: Signed Intake Vital Signs 10/14/2517:42 11/10/2511:43 Height 5 ft 7 in 5 ft 7 in Weight: 210 lb BMI 32.8 BP 127/82 H Blood Pressure Location Rt brachial Position Sitting Respiration 18 Intake Visit Reasons: DISCUSS POSSIBLE EGD Chief Complaint: EGD Systems Software Engineer Required: No Is patient in pain?: No Allergies cephalexin (From Keflex) Allergy (Mild, Verified 11/09/24 12:44) Hivescodeine Allergy (Mild, Verified 11/09/24 12:44) Weepy eyes Medications ?Medication ?Instructions ?Recorded ?Confirmed ?Type Cholecalciferol (Vitamin D3) 10,000 units PO DAILY 12/22/19 11/09/24 History [Vitamin D3] apixaban 5 mg tablet (Eliquis) See Rx Instructions .Route 10/20/23 11/09/24 Rx .COMPLEX #42 tabs amiodarone 200 mg tablet 200 mg PO QDAY 10/14/24 11/09/24 History carvedilol 25 mg tablet 25 mg PO BID 10/14/24 11/09/24 History diltiazem HCl 120 mg 120 mg PO QAM 10/14/24 11/09/24 History capsule,extended release 24 hr (Cartia XT) duloxetine 60 mg capsule,delayed 60 mg PO DAILY 10/14/24 11/09/24 History release ginko bilboa PO 10/14/24 11/09/24 History lutein 6 mg capsule 6 mg PO QDAY 10/14/24 11/09/24 History oxybutynin chloride 5 mg 5 mg PO DAILY 10/14/24 11/09/24 History tablet,extended release 24 hr turmeric 400 mg capsule mg PO 10/14/24 11/09/24 History Have you fallen in the past year?: No PFSH Medical History Benign cardiac neoplasm Impacted cerumen of both ears Tibia fracture Atrial fibrillation Wears contact lenses Wears glasses Post-menopausal Arthritis Non-smoker Shortness of breath on exertion Cyst of left breast Breast pain, left Surgical History History of open heart surgery Hx of CABG History of lumbar laminectomy History of bilateral knee replacement H/O colonoscopy History of hysterectomy History of carpal tunnel surgery History of appendectomy Gastric bypass status for obesity History of hip surgery S/P tonsillectomy Family History Mother Breast cancer CVA (cerebral vascular accident) Cancer , uterineFather CVA (cerebral vascular accident) Heart disease Cancer skin Grandmother Breast cancer Social History Smoking Status: Never smoker alcohol intake: current alcohol intake frequency: holidays/special occasions only substance use type: does not use HPI HPI HPI: Patient is a 69-year-old female who presents after initially establishing a following for her thyroid last month for complaints of persistent dysphagia and and interested in EGD. She states that her dysphagia has progressed in that time and she is not experiencing difficulty with pills. She notes occasional difficulty with liquids but is unable to differentiate difficulty with thinner versus thicker liquids. She denies any increase of reflux or heartburn symptoms. She states that she has experienced some bloating in the mornings. She denies any associated nausea or coughing. She further clarifies that she has not had a prior EGD but did undergo colonoscopy as recent as 3 years ago and was given a 10-year follow-up. Patient reminds me that she has a history of Spencer-en-Y gastric bypass. Patient has no family history of esophageal or gastric cancers. She arrives to today's visit stated she has held her Eliquis for the last 3 days as she believes she would undergo her EGD procedure today. ROS General General: Yes fatigue; No weight change, appetite, colon cancer, breast cancer or weakness HEENT HEENT: Yes difficulty swallowing and swollen glands; No eye injury, eye surgery or hoarseness Endo Endocrine: No thyroid disease, diabetes mellitus, thyroid cancer, Hair loss, heat intolerance or cold intolerance Skin Skin: No rash or changing moles Musc Musculoskeletal: Yes back problems and arthritis; No rheumatoid arthritis, gout or joint pain Cardio Cardiovascular: Yes atrial fibrillation; No murmur, pacemaker, heart disease, high blood pressure, heart attack, heart stent, palpitations, shortness of breath with exertion or chest pain Psych Psychiatric: No depression, anxiety or hearing voices Resp Respiratory: No shortness of breath, No sleep apnea, No cough, No COPD, No asthma, No emphysema and No wheezing Gastro Gastrointestinal: No abdominal pain, No nausea or vomiting, No diarrhea, No constipation, No blood in stool, No acid reflux, No hemorrhoids, No ulcers, No gallbladder problem and No black,tarry stools Jovan Hematologic: Yes blood thinners, No blood disorders, No bleeding, No anemia and No blood clots Neuro Neurologic: No system reviewed and no additional complaints, except as documented, No as per HPI, No abnormal gait, No abnormal hearing, No abnormal movements, No abnormal speech, No behavioral changes, No burning sensations, No confusion, No convulsions, No disequilibrium, No dizziness, No localized weakness, No frequent falls, No headache(s), No lack of coordination, No loss of vision, No memory loss, No numbness, No other visual disturbances, No radicular pain, No restless legs, No sensory deficit, No syncope, No tingling, No tremor(s), No weakness and No other Exam Const General: cooperative Orientation: alert, awake and oriented x3 Assessment and Plan Assessment and Plan (1) Difficulty swallowing: Status: Acute Comment: Given that patient reports simultaneous thyroid tenderness and swallowing difficulty this is suspicious for thyroid mediated dysphagia, but a comparison of her ultrasound results does not necessarily support this hypothesis given the minimal increase in size of the gland. Thus, I remain somewhat doubtful that the thyroid is the culprit and would maintain esophageal causes as part of the differential. Since she does describe some tenderness of the nodule I believe there is reason to believe her symptoms may spontaneously improve if this is attributable to thyroiditis. I offered possible EGD if her symptoms persist but encouraged her to wait just a little longer before deciding for a scope evaluation. Update 11/09/2024: Patient follows up 1 month after thyroid consultation to discuss progressive dysphagia. I believe it is reasonable to proceed with EGD exam at this time but patient is cautioned that I do not aggressively dilate the stomach and that her postoperative Spencer-en-Y bypass anatomy is to be considered yet further. We will look to see if we can identify a cause for her dysphagia symptoms and maintain a differential of possible esophageal stenosis versus web versus mass. Patient to hold her Eliquis for 2 days prior in the event a biopsy is indicated by the exam. Plan: EGD with possible biopsy. Patient to hold Eliquis for 48 hours prior to HD I have examined the patient and the H&P has been reviewed. There are no clinical changes since date of exam. Patient confirms that her difficulty swallowing has not progressed but remained stable. She also confirms that she has held her Eliquis for the past 5 days anticipation of today's procedure. Will proceed to endoscopy suite for EGD exam as described in greater detail above.
--- NOTE | 2024-12-17 09:00 | EGD_PTH ---
PATIENT: HEBER GOMEZ LOC: EN U#:[id number] AGE/SX: 69/F ROOM: RE12/17/[address]: Dr. Rao Perez MD : 1955 BED: DIS: 12/17/2024 SPEC #: [id number] RECD: 12/17/24 10:11 STATUS: MALLORY SUTTONBenito #: [id number] DUANE: 12/17/24 09:[address]: Rao Perez DEPT: SURGICAL PATHOLOGY RECD BY: Ana Paula Morley ENTERED: 12/17/24 15:07 SP TYPE: EGD [facility]OP[facility] DR: Dr. Mirian aSnchez MD Tissues: Esophagus, NOS Procedures: Surgery Specimen Level IV HEADER OPERATION: EGD, biopsy PRE-OP DIAGNOSIS: Difficulty swallowing TISSUE SUBMITTED: A- Distal esophagus biopsy MICROSCOPIC DIAGNOSIS A. Distal esophagus, biopsy: - Benign squamous mucosa negative for eosinophils. - No columnar mucosa seen. MICROSCOPIC DESCRIPTION Slides are reviewed. GROSS DESCRIPTION A. Received in fixative is one container labeled with the patient's name and designated Distal esophagus biopsy. The specimen consists of one irregular fragment of light brown soft tissue that measures 0.7 x 0.4 x 0.2 cm. The specimen is totally submitted in one cassette. MS/mr 12/17/2024 CPT:[id number]
--- NOTE | 2024-12-17 09:28 | PCM.POST.ANE ---
Anesthesia: Postop Eval I Current Vital Signs Temperature: 97 F Pulse Rate: 103 Blood Pressure: 122/70 Respiratory Rate: 16 Pulse Ox: 99 Oxygen Delivery Method: Room Air Assessment Airway patent: Yes Spontaneous unlabored respirations: Yes Mental status: Awake and Calm nausea: No Vomiting: No Anesthesia Complication: No Fluid Hydration Crystalloid volume administer (ml): 400 Total IV fluid infused: 400 Progress Note Anesthesia document: Postop Eval 1 completed: Yes
--- NOTE | 2024-12-17 09:38 | OP.EGD_ITS ---
Patient Name: Zainab River Procedure Date: 12/17/2024 8:48 AM Date of : 1955 Age: 69 Procedure: Upper GI endoscopy Indications: Dysphagia Providers: Rao Perez MD Referring MD: Mirian Sanchez Medicines: See the Anesthesia note for documentation of the administered medications Patient Profile: Refer to note in patient chart for documentation of history and physical. Complications: No immediate complications. Estimated blood loss: Minimal. Procedure: Pre-Anesthesia Assessment: - The heart rate, respiratory rate, oxygen saturations, blood pressure, adequacy of pulmonary ventilation, and response to care were monitored throughout the procedure. After obtaining informed consent, the endoscope was passed under direct vision. Throughout the procedure, the patient's blood pressure, pulse, and oxygen saturations were monitored continuously. The gastroscope was introduced through the mouth, and advanced to the afferent and efferent jejunal loops. The upper GI endoscopy was somewhat difficult due to the patient's oxygen desaturation. Successful completion of the procedure was aided by administering oxygen. The patient tolerated the procedure fairly well. Scope In: 9:04:45 AM Scope Out: 9:24:42 AM Total Procedure Duration Time 0 hours 19 minutes 57 seconds Findings: The examined jejunum was normal. No biopsies or other specimens were collected for this exam. Evidence of a gastric bypass was found. A gastric pouch was found. The staple line appeared intact. The gastrojejunal anastomosis was characterized by healthy appearing mucosa. This was traversed. The fdvxd-vx-zebytnu limb was characterized by healthy appearing mucosa. The mdgpqxcj-kb-iqbefqv limb was not examined as it could not be reached. The excluded stomach was not examined as it could not be reached. The Z-line was regular and was found 39 cm from the incisors. No biopsies or other specimens were collected for this exam. Multiple 3 to 7 mm plaques were found in the distal esophagus, 30 cm from the incisors. Biopsies were taken with a cold forceps for histology. Estimated blood loss was minimal. rings of esophageal mucosa, No biopsies or other specimens were collected for this exam. The proximal esophagus was moderately tortuous. No biopsies or other specimens were collected for this exam. Impression: - Normal examined jejunum. No specimens collected. - Gastric bypass with intact staple line. Gastrojejunal anastomosis characterized by healthy appearing mucosa. - Z-line regular, 39 cm from the incisors. No specimens collected. - Multiple plaques in the distal esophagus. Biopsied. - Tortuous esophagus. No specimens collected. Recommendation: - Discharge patient to home (via wheelchair). - Soft diet for 2 days. - Resume Eliquis (apixaban) at prior dose in 2 days. Refer to primary physician for further adjustment of therapy. - Telephone my office for pathology results in 1 week. Procedure Code(s): --- Professional --- 00377, Esophagogastroduodenoscopy, flexible, transoral; with biopsy, single or multiple Diagnosis Code(s): --- Professional --- Z98.84, Bariatric surgery status K22.89, Other specified disease of esophagus Q39.9, Congenital malformation of esophagus, unspecified R13.10, Dysphagia, unspecified CPT copyright 2021 [employer]. All rights reserved. The codes documented in this report are preliminary and upon auto appraiser review may be revised to meet current compliance requirements. Rao Perez MD 12/17/2024 9:37:30 AM This report has been signed electronically. Number of Addenda: 0 Note Initiated On: 12/17/2024 8:48 AM
--- NOTE | 2024-12-17 09:38 | OP.CCLET_ITS ---
12/17/2024 Mirian Sanchez [address] [place] [address] Re : Upper GI endoscopy procedure for Zainab Rivre Dear Dr. Sanchez This procedure was performed on Tuesday, December 17, 2024. My impressions and recommendations are as follows: Impressions : - Normal examined jejunum. No specimens collected. - Gastric bypass with intact staple line. Gastrojejunal anastomosis characterized by healthy appearing mucosa. - Z-line regular, 39 cm from the incisors. No specimens collected. - Multiple plaques in the distal esophagus. Biopsied. - Tortuous esophagus. No specimens collected. Recommendations : - Discharge patient to home (via wheelchair). - Soft diet for 2 days. - Resume Eliquis (apixaban) at prior dose in 2 days. Refer to primary physician for further adjustment of therapy. - Telephone my office for pathology results in 1 week. My findings are described in the full procedure note, which is enclosed. If I can be of further assistance, please feel free to contact me at Doctor phone number(s): , Work: . Sincerely, Rao Perez MD 12/17/2024 9:37:30 AM This report has been signed electronically.
--- NOTE | 2024-12-17 12:48 | POSTOPAN2_ITS ---
Anesthesia Postop Eval I Sum Postop Eval Completion status Anesthesia document: Postop Eval 1 completed: Yes Anesthesia Postop Eval I Summary Anesthesia Postop Eval I Summary: Anesthesia Postop Eval I: Assessment Summary Airway patent Yes 12/17/24 09:28 GEOGRAPHIC INFORMATION SYSTEMS ANALYST.MDOT Spontaneous unlabored Yes 12/17/24 09:28 GEOGRAPHIC INFORMATION SYSTEMS ANALYST.MDOT respirations Mental status Awake,Calm 12/17/24 09:28 GEOGRAPHIC INFORMATION SYSTEMS ANALYST.MDOT nausea No 12/17/24 09:28 GEOGRAPHIC INFORMATION SYSTEMS ANALYST.MDOT Vomiting No 12/17/24 09:28 GEOGRAPHIC INFORMATION SYSTEMS ANALYST.MDOT Anesthesia Postop Eval I: Fluid Summary Crystalloid volume administer 400 12/17/24 09:28 GEOGRAPHIC INFORMATION SYSTEMS ANALYST.MDOT (ml) Colloids volume administered ( ml) Blood Product volume administered (ml) Total IV fluid infused 400 12/17/24 09:28 GEOGRAPHIC INFORMATION SYSTEMS ANALYST.MDOT Anesthesia Postop Eval I: Summary Notes Anesthesia Complication No 12/17/24 09:28 GEOGRAPHIC INFORMATION SYSTEMS ANALYST.MDOT Anesthesia Complication Comment: Post-operative progress note Anesthesia: Postop Eval II Evaluation Mental status: Awake and Calm Pain Level: 0 nausea: No Vomiting: No Complications Anesthesia Complication: No
--- NOTE | 2024-12-17 12:48 | PCM.POSTANE2 ---
Anesthesia Postop Eval I Sum Postop Eval Completion status Anesthesia document: Postop Eval 1 completed: Yes Anesthesia Postop Eval I Summary Anesthesia Postop Eval I Summary: Anesthesia Postop Eval I: Assessment Summary Airway patent Yes 12/17/24 09:28 BRANCH ACCOUNT EXECUTIVE.MDOT Spontaneous unlabored Yes 12/17/24 09:28 BRANCH ACCOUNT EXECUTIVE.MDOT respirations Mental status Awake,Calm 12/17/24 09:28 BRANCH ACCOUNT EXECUTIVE.MDOT nausea No 12/17/24 09:28 BRANCH ACCOUNT EXECUTIVE.MDOT Vomiting No 12/17/24 09:28 BRANCH ACCOUNT EXECUTIVE.MDOT Anesthesia Postop Eval I: Fluid Summary Crystalloid volume administer 400 12/17/24 09:28 BRANCH ACCOUNT EXECUTIVE.MDOT (ml) Colloids volume administered ( ml) Blood Product volume administered (ml) Total IV fluid infused 400 12/17/24 09:28 BRANCH ACCOUNT EXECUTIVE.MDOT Anesthesia Postop Eval I: Summary Notes Anesthesia Complication No 12/17/24 09:28 BRANCH ACCOUNT EXECUTIVE.MDOT Anesthesia Complication Comment: Post-operative progress note Anesthesia: Postop Eval II Evaluation Mental status: Awake and Calm Pain Level: 0 nausea: No Vomiting: No Complications Anesthesia Complication: No
== END 2024-12-17 10:18 | disposition home or self-care (01) ==
LOC: EN 07:49 → AC 07:50
PROVIDERS: PCP Family Medicine; Referring Provider Family Medicine; Visit Provider Surgery
PROC: 0DJ08ZZ Inspection of Upper Intestinal Tract, Via Natural or Artificial Opening Endoscopic (ICD-10-PCS; CPT 43235; principal; 2024-12-17 08:55)
DX: K22.89 Other specified disease of esophagus (principal); I48.91 Unspecified atrial fibrillation; Z79.01 Long term (current) use of anticoagulants; Z98.84 Bariatric surgery status
CPT/HCPCS: 43239; 88305

== ENCOUNTER → 2025-03-01 | Outpatient (CLI) | payer MEDICARE, SELFPAY ==
--- OUTSIDE RECORDS SUMMARY | 2024-07-13 11:25 | XMS RPT_ITS ---
Author Name Auto Generated Organization OHIP Care Team Providers Care Architectural Associate Name Role Phone ITZ RAYO Primary Care Unavailable DAYRAISSA Attending Unavailable PROBLEMS DATE TYPE CONDITION / CODE ATTENDING STATUS [facility] 07/13/2024 Admitting diagnosis Longstanding persistent atrial fibrillation / I48.11(ICD-10) RAISSA MOONEY Active [facility] 05/03/2024 Admitting Diagnosis Hyperlipidemia, unspecified / E78.5(ICD-10) [facility] 05/03/2024 Admitting Diagnosis Essential (primary) hypertension / I10(ICD-10) [facility] 05/03/2024 Admitting Diagnosis Vitamin D deficiency, unspecified / E55.9(ICD-10) [facility] PROCEDURES No Procedure Records Found RESULTS PROGRESS Observed: 08/02/2024 4:16 PM Status: COMPLETED Source: [facility] HNO ID: [id number] Author: ?, ?, ? Service: ? Author Type: ? Type: Progress Notes Filed: 08/02/2024 16:16 Note Text: QOL Call Tracking Documentation Follow-Up Type: Phone Call Call Attempt: 1st Attempt Call Status: Left Message CNPTOUTRANA Observed: 08/02/2024 12:00 AM Status: COMPLETED Source: [facility] Patient Outreach (CIUMN) JASONZAINAB ([id number]) 1955 F Date Time Provider Department 08/02/24 LEATHA SAUER During your visit today, we recorded the following information about you: Leatha Sauer 08/02/2024 4:16 PM Signed QOL Call Tracking Documentation Follow-Up Type: Phone Call Call Attempt: 1st Attempt Call Status: Left Message Allergies As of Date: 08/02/2024 Noted Allergy Reaction CODEINE 03/18/2007 5 - Intolerance Comments: gets weepy and constipated KEFLEX (CEPHALEXIN) 03/18/2007 4 - Hives METOPROLOL 07/10/2023 14 - Other: See Comments Comments: Dizziness Date Reviewed: 07/30/2023 Reviewed by: Arianne Alexander MA - Fully Assessed Prescriptions as of 08/02/2024 - acetaminophen (TYLENOL) 325 mg tablet Take 1-2 tablets by mouth every 4 hours as needed for pain. - amiodarone (PACERONE) 200 mg tablet Take 1 tablet by mouth once daily. - aspirin 81 mg chewable tablet Take 1 tablet by mouth once daily. - rosuvastatin (CRESTOR) 20 mg tablet Take 1 tablet by mouth daily at bedtime. - carvedilol (COREG) 25 mg tablet Take 1 tablet by mouth two times a day with meals. - furosemide (LASIX) 40 mg tablet Take 1 tablet by mouth once daily. - Cholecalciferol, Vitamin D3, 250 mcg (10,000 unit) cap Take 10,000 Units by mouth once daily. - ELIQUIS 5 mg tab(s) Take 5 mg by mouth two times a day. - DULoxetine (CYMBALTA) 60 mg capsule Take 60 mg by mouth once daily. - Zbubecay-Uw-Csr-Fe-FA ( FORMULA) ORAL Tab Take by mouth. - Ywzfef-MH-Vpa B Comp AND C-Zinc (BIOTIN FORTE) 3-0.8 mg ORAL Tab Take by mouth. - Calcium Carbonate-Vit D3-Min (CALTRATE 600+D PLUS MINERALS) 600-400 mg (1,500 mg) ORAL Chew Take by mouth. Problem List As Of Date 08/02/2024 Noted Resolved Encounter for screening for malignant neoplasm *05/29/2017 Discharge planning issues [Z75.8] 07/10/2023 Pre-op testing [Z01.818] 07/10/2023 Atrial fibrillation (HCC) [I48.91] 07/15/2023 Arthritis [M19.90] 07/15/2023 Osteoporosis [M81.0] 07/15/2023 Cardiac tumor, atrial [D49.89] 07/15/2023 Postoperative pain [G89.18] 07/15/2023 Atelectasis [J98.11] 07/15/2023 Accelerated junctional rhythm [I49.8] 07/15/2023 Hypovolemia [E86.1] 07/15/2023 07/16/2023 Elevated lactic acid level [R79.89] 07/15/2023 07/16/2023 Stress hyperglycemia [R73.9] 07/15/2023 Obesity [E66.9] 07/15/2023 ABLA (acute blood loss anemia) [D62] 07/15/2023 Coronary artery disease involving [place] tripathi*07/15/2023 Postoperative hypertension [I97.3] 07/16/2023 Fluid overload [E87.70] 07/16/2023 Encounter for support and coordination of trans*07/18/2023 Obesity, Class II, BMI 35-39.9 [E66.812] 07/24/2023 Encounter Status:Closed by LEATHA SAUER on 08/02/24 PROGRESS Observed: 07/13/2024 10:40 AM Status: COMPLETED Source: [facility] General Cardiology [facility] Consult 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 Longstanding persistent atrial fibrillation (HCC) 4. Coronary artery disease Status post lipoma resection with pericardial patch, CABG x 1 RAE to LAD and maze Left atrial appendage thrombus noted postoperatively She presents today with continued atrial fibrillation, we will discontinue amiodarone for now, continue oral anticoagulation She will need a repeat echocardiogram which will be done at our next office visit Continue Eliquis, okay to hold aspirin, continue rosuvastatin, LDL is at target It has been a pleasure caring for this patient. Please don't hesitate to reach out to my office directly with any questions or concerns. Follow-up: Return in about 9 months (around 04/12/2025). Raissa Mooney MD, [facility] Non-Invasive Cardiology [facility] P:[phone] F:[phone] History of Present Illness: Zainab River is a 69 y.o. woman with no past medical history who presented initially in August 2022 for abnormal echocardiogram. Patient had cataract surgery, and while at the [employer] office was noted to have abnormal heart rhythm. EKG was performed which showed atrial bigeminy. She was referred to her primary care physician who ordered an echocardiogram. Echocardiogram revealed right atrial mass. Patient has been asymptomatic denying palpitations dizziness or lightheadedness. Not having any near-syncope or syncope. Approximately 1 month after initial diagnosis, patient then developed asymptomatic atrial fibrillation. Heart rate control was started with metoprolol and patient had been doing well. Unfortunately 2 months ago she had a syncopal event where she was walking in her garage and suddenly blacked out falling hitting her head causing a concussion with a headache. She then was sent emergently to the emergency department thankfully had no intracranial bleeding. She began having symptoms of orthopnea and early satiety and thus was referred for definitive management to [facility] where she underwent lipoma resection CABG x 1 and maze. She developed left atrial appendage thrombus perioperatively and so was left in atrial. Unfortunately she has fallen postoperatively and fractured her left femur. She presents today for follow-up office visit. She is doing well, she is now back to working a few days a week. She has had some weight loss, no orthopnea or paroxysmal nocturnal dyspnea. Remains in A-fib however asymptomatic, tolerating all medications well. Some occasional lower extremity edema. No further episodes of dizziness or lightheadedness Objective Review of Systems: All systems were reviewed and are noted to be negative unless otherwise stated in HPI. Past Medical History: Diagnosis Date A-fib (HCC) Past Surgical History: Procedure Laterality Date CATARACT EXTRACTION W/ INTRAOCULAR LENS IMPLANT Bilateral HIP ARTHROPLASTY Left KNEE ARTHROPLASTY Bilateral Family History Problem Relation Age of Onset Stroke Mother Heart attack Mother Breast cancer Mother Uterine cancer Mother Alzheimer's disease Mother Stroke Father Transient ischemic attack Father Dementia Father Uterine cancer Maternal Grandmother Breast cancer Maternal Grandmother Social History Tobacco Use Smoking Status Never Smokeless Tobacco Never Allergies: Cephalexin and Codeine All of the information has been reviewed at today's visit and modified if necessary. Home Medications: Current Outpatient Medications: apixaban 5 mg Tab, Take 1 (one) tablet (5 mg total) by mouth 2 (two) times a day ., Disp: 180 tablet, Rfl: 3 BIOTIN ORAL, Take by mouth ., Disp: , Rfl: calcitrioL (ROCALTROL) 0.25 MCG capsule, 1 CAPSULE BY MOUTH 3 TIMES PER WEEK, Disp: , Rfl: carvediloL (COREG) 25 MG tablet, Take 1 (one) tablet (25 mg total) by mouth 2 (two) times a day with meals ., Disp: , Rfl: cholecalciferol (VITAMIN D3) 250 mcg (10,000 unit) capsule, Take 1 (one) capsule (10,000 Units total) by mouth daily ., Disp: , Rfl: diltiazem (CARDIZEM CD) 120 MG 24 hr capsule, Take 1 (one) capsule (120 mg total) by mouth daily ., Disp: 90 capsule, Rfl: 3 DULoxetine (CYMBALTA) 60 MG capsule, Take by mouth daily ., Disp: , Rfl: GINKGO BILOBA ORAL, Take by mouth ., Disp: , Rfl: LUTEIN ORAL, Take by mouth ., Disp: , Rfl: multivit with minerals/lutein (MULTIVITAMIN 50 PLUS ORAL), Take by mouth ., Disp: , Rfl: oxyBUTYnin (DITROPAN-XL) 5 MG 24 hr tablet, Take 1 (one) tablet (5 mg total) by mouth daily ., Disp: , Rfl: rosuvastatin (CRESTOR) 20 MG tablet, Take 1 (one) tablet (20 mg total) by mouth nightly ., Disp: , Rfl: LFDOYHP-PSBR-EHNGH-OREG-CAPRYL ORAL, Take by mouth ., Disp: , Rfl: aspirin 81 mg chewable tablet, Chew and Swallow 1 (one) tablet (81 mg total) daily . (Patient not taking: Reported on 07/13/2024 .), Disp: , Rfl: sulfamethoxazole-trimethoprim (BACTRIM DS,SEPTRA DS) 800-160 mg per tablet, Take 1 (one) tablet by mouth 2 (two) times a day Take one tablet twice daily for three days . (Patient not taking: Reported on 07/13/2024 .), Disp: 6 tablet, Rfl: 0 traMADol (ULTRAM) 50 mg tablet, Take 1 (one) tablet (50 mg total) by mouth every 6 (six) hours as needed . (Patient not taking: Reported on 07/13/2024 .), Disp: , Rfl: Physical Exam: BP 121/83 (BP Location: Right arm, Patient Position: Sitting, BP Cuff Size: Adult) Pulse 93 Wt 94.1 kg (207 lb 6.4 oz) SpO2 94% BMI 33.48 kg/m Constitutional: Well appearing female, no acute distress Head: Normocephalic and atraumatic. Eyes: Conjunctivae are normal, no scleral icterus, no corneal arcus Neck: No acanthosis nigricans, no elevated jugular venous distension, no hepatojugular reflux Cardiovascular: Irregular rate and rhythm, 1/6 diastolic murmur noted at right upper sternal border, normal S1 and S2, no rubs or gallops, PMI is midline Pulses: +2 dorsalis pedis pulses bilaterally Musculoskeletal: Normal range of motion. No cyanosis. No peripheral Edema Neurological: AOx3, moving all extremities normally Skin: Skin is warm and dry, normal hair pattern Psychiatric: Normal mood and affect, appropriate conversation Cardiovascular Studies: Reviewed [facility] records July 2022 Cardiac MRI 67 year old female with right atrial mass. CARDIAC MRI: 1. There is a well-circumscribed 3.7 x 2.3 cm mass within the right atrium which is contiguous with the septum. Mass it hyperintense on T1 imaging, jksqd-vf-mbnwbsdqqy on T2 imaging. Mass does not perfuse. No hyperenhancement on delayed enhancement imaging. MRI parametric findings most suggestive of lipoma. 2. Normal left ventricular size and hyperdynamic systolic function, quantitative LVEF 70%. No evidence of myocardial scar or fibrosis on delayed enhancement imaging. 3. Normal right ventricular size and hyperdynamic systolic function, quantitative RVEF 72%. 4. Mild biatrial enlargement. SUMMARY LEFT VENTRICLE: LV wall thickness is normal. LV cavity size is normal. LV systolic function is hyperdynamic. Quantitative LVEF 70 %. VIABILITY: Hyperenhancement is normal. RIGHT VENTRICLE: RV cavity size is normal (ALONZO 4.6 cm; ESD 2.2 cm). RV systolic function is hyperdynamic. Quantitative RVEF 72 %. LEFT ATRIUM: LA is mildly enlarged. RIGHT ATRIUM: RA is mildly enlarged. PERICARDIUM: Pericardium is normal. There is no pericardial effusion. PLEURAL EFFUSION: There is no pleural effusion. MITRAL VALVE: Mitral valve leaflets are normal. TRICUSPID VALVE: Tricuspid valve leaflets are normal. AORTIC ROOT: Normal caliber thoracic aorta with the following measurements at the PA bifurcation: AAo 35 x 34 mm; Antelmo 26 x 25 mm. EKG today's date demonstrates atrial bigeminy EKG 05/06/2023 demonstrates atrial fibrillation, heart rate elevated 119, no evidence of ischemia or infarction POLO 05/2023 Summary 1. There is a large, echodense mass attached to the interatrial septum measuring 4.7 x 2.9 cm consistent with patient's known history of lipoma. This mass does not obstruct the SVC or tricuspid valve function.. 2. Normal left ventricular size and systolic function, estimated LVEF 60 to 65%. 3. Mildly dilated right ventricle with normal systolic function. 4. Biatrial enlargement. 5. No hemodynamically significant valvular disease. 6. No evidence of intracardiac shunting with agitated saline contrast study. 7. No left atrial appendage thrombus or spontaneous contrast. Normal emptying velocities, 50 cm/s. Labs: Reviewed 05/21/2024 Total cholesterol 177, HDL 73, LDL 83, triglycerides 105 AUTHENTICATED BY RAISSA MOONEY, ON 07/13/2024 17:11:09 COMPLETE BLOOD COUNT W AUTO DIFFERENTIAL PANEL Collected: 05/03/2024 9:41 AM Status: F Source: [facility] TYPE CODE TESTS RESULT OUT OF RANGE REFERENCE UNITS LAB 6690-2(LOINC) Leukocytes 7.2 4.4-11.3 x10*3/ uL LAB 59804-4(LOINC ) Erythrocytes.nuc leated/100 leukocytes 0.0 0.0-0.0 /100 WBCs LAB 789-8(LOINC) Erythrocytes 4.22 4.00-5.20 x10* 6/uL LAB 718-7(LOINC) Hemoglobin 11.7 Low 12.0-16.0 g/dL LAB 4544-3(LOINC) Hematocrit 39.1 36.0-46.0 % LAB 787-2(LOINC) Erythrocyte mean corpuscular volume 93 80-100 fL LAB 785-6(LOINC) Erythrocyte mean corpuscular hemoglobin 27.7 26.0-34.0 pg LAB 786-4(LOINC) Erythrocyte mean corpuscular hemoglobin concentration 29.9 Low 32.0-36.0 g/dL LAB 788-0(LOINC) Erythrocyte distribution width 16.2 High 11.5-14.5 % LAB 777-3(LOINC) Platelets 391 150-450 x10*3/uL LAB 770-8(LOINC) Neutrophils/100 leukocytes 63.5 40.0-80.0 % LAB 20805-1(LOINC ) Granulocytes.imm ature/100 leukocytes 0.6 0.0-0.9 % Result Comment: Immature Gra nulocyte Count (IG) includes promyelocytes, myelocytes and metamyelocytes but does not include bands. Percent differential counts (%) should be interpreted in the context of the absolute cell counts (cells/UL). LAB 736-9(LOINC) Lymphocytes/100 leukocytes 25.6 13.0-44.0 % LAB 5905-5(LOINC) Monocytes/100 leukocytes 7.9 2.0-10.0 % LAB 713-8(LOINC) Eosinophils/100 leukocytes 1.8 0.0-6.0 % LAB 706-2(LOINC) Basophils/100 leukocytes 0.6 0.0-2.0 % LAB 751-8(LOINC) Neutrophils 4.56 1.60-5.50 x10*3 /uL Result Comment: Percent diff erential counts (%) should be interpreted in the context of the absolute cell counts (cells/uL). LAB 92614-0(LOINC ) Granulocytes.imm ature 0.04 0.00-0.50 x10*3/uL LAB 731-0(LOINC) Lymphocytes 1.84 0.80-3.00 x10*3 /uL LAB 742-7(LOINC) Monocytes 0.57 0.05-0.80 x10*3/u L LAB 711-2(LOINC) Eosinophils 0.13 0.00-0.40 x10*3 /uL LAB 704-7(LOINC) Basophils 0.04 0.00-0.10 x10*3/u L Performed By: #### [id number] # ### RAMIREZ PINO ([id number]) [facility] ([facility]) [address] [place] [address] COMPREHENSIVE METABOLIC 2000 PANEL Collected: 05/03/2024 9:41 AM Status: F Source: [facility] TYPE CODE TESTS RESULT OUT OF RANGE REFERENCE UNITS LAB 2345-7(LOINC) Glucose 90 74-99 mg/dL LAB 2951-2(LOINC) Sodium 140 136-145 mmol/L LAB 2823-3(LOINC) Potassium 4.5 3.5-5.3 mmol/L LAB 2075-0(LOINC) Chloride 108 High 98-107 mmol/L LAB 8-9(LOINC) Carbon dioxide 26 21-32 mmo l/L LAB 10817-5(LOINC ) Anion gap 11 10-20 mmol/L LAB 3094-0(LOINC) Urea nitrogen 21 6-23 mg/d L LAB 2160-0(LOINC) Creatinine 0.70 0.50-1.05 mg/dL LAB 39371-8(LOINC ) Glomerular filtration rate/1.73 sq M.predicted >90 >60 mL/min/ 1.73m*2 Result Comment: Calculations of estimated GFR are performed using the 2020 CKD- EPI Study Refit equation without the race variable for the IDMS-Traceable creatinine methods. https://jasn.asnjournals.org/content/early//ASN.4823954135 LAB 29181-6(LOINC ) Calcium 9.3 8.6-10.3 mg/dL LAB 67548-6(LOINC ) Albumin 4.0 3.4-5.0 g/dL LAB 6768-6(LOINC) Alkaline phosphatase 98 33-136 U/L LAB 2885-2(LOINC) Protein 6.1 Low 6.4-8.2 g/dL LAB 99697-3(LOINC ) Aspartate aminotransferase 22 9-39 U/L LAB 1975-2(LOINC) Bilirubin 0.5 0.0-1.2 mg/dL LAB 1743-4(LOINC) Alanine aminotransferase 19 7-45 U/L Result Comment: Patients bere ated with Sulfasalazine may generate falsely decreased results for ALT. Performed By: #### [id number] # ### RAMIREZ PINO ([id number]) [facility] ([facility]) [address] [place] [address] LIPID 1996 PANEL Collected: 05/03/2024 9:41 AM Statu s: F Source: [facility] TYPE CODE TESTS RESULT OUT OF RANGE REFERENCE UNITS LAB 2093-3(LOINC) Cholesterol 177 0-199 mg/dL Result Comment: Age Desirabl e Borderline High High 0-19 Y 0 - 169 170 - 199 >/= 200 20-24 Y 0 - 189 190 - 224 >/= 225 >24 Y 0 - 199 200 - 239 >/= 240 All ranges are based on fasting samples. Specific therapeutic targets will vary based on patient-specific cardiac risk. Pediatric guidelines reference:Pediatrics 2011, 128(S5).Adult guidelines reference: NCEP ATPIII Guidelines,[place] 2001, 258:2486-97 Venipuncture immediately after or during the administration of Metamizole may lead to falsely low results. Testing should be performed immediately prior to Metamizole dosing. LAB 2085-9(LOINC) Cholesterol.in HDL 73.0 mg/dL Result Comment: Age Very Low Low Normal High 0-19 Y < 35 < 40 40-45 ---- 20-24 Y ---- < 40 >45 ---- >24 Y ---- < 40 40-60 >60 LAB CHHDL CHOLESTEROL/HDL RATIO 2.4 NA Result Comment: Ref Values Desirable < 3.4 High Risk > 5.0 LAB 01314-1(LOINC) Cholesterol.in LDL 83 <=99 mg/dL Result Comment: Near Borderl ine AGE Desirable Optimal High High Very High 0-19 Y 0 - 109 --- 110-129 >/= 130 ---- 20-24 Y 0 - 119 --- 120-159 >/= 160 ---- >24 Y 0 - 99 100-129 130-159 160-189 >/=190 LAB VLDL VLDL 21 0-40 mg/dL LAB 2571-8(LOINC) Triglyceride 105 0-149 mg/dL Result Comment: Age Desirabl e Borderline High Very High SEX:B mg/dL mg/dL mg/dL mg/dL <=14D 86-277 ---- ---- ---- 15D-365D 55-277 ---- ---- ---- 1Y-9Y 0-74 75-99 >=100 ---- 10Y-19Y 0-89 90-129 >=130 ---- 20Y-24Y 0-114 115-149 >=150 ---- >= 25Y 0-149 150-199 200-499 >=500 Venipuncture immediately after or during the administration of Metamizole may lead to falsely low results. Testing should be performed immediately prior to Metamizole dosing. LAB NHDL NON HDL CHOLESTEROL 104 0-149 mg/dL Result Comment: Age Desirabl e Borderline High High Very High 0-19 Y 0 - 119 120 - 144 >/= 145 >/= 160 20-24 Y 0 - 149 150 - 189 >/= 190 ---- >24 Y 30 mg/dL above LDL Cholesterol goal Performed By: #### [id number] # ### JAMES PRINGLE ([id number]) [facility] ([facility]) [address] [place] [address] 22453 CALCIDIOL Collected: 4 9:41 AM Status: F Source: [facility] Order Comment: Deficiency: < 20 ng/ml Insufficiency: 20-29 ng/ml Sufficiency: 30-100 ng/ml This assay accurately quantifies the sum of Vitamin D3, 25-Hydroxy and Vitamin D2,25-Hydroxy. TYPE CODE TESTS RESULT OUT OF RANGE REFERENCE UNITS LAB 1988-07(LOINC) Calcidiol 92 30-100 ng/mL Performed By: #### 1988- ## ## JAMES PRINGLE ([id number]) [facility] ([facility]) [address] [place] [address]37 ALLERGIES DATE TYPE / CODE NAME / CODE REACTION SEVERITY SOURCE 03/18/2007 DRUG INGREDI/2563479 03(SNOMED CT) CEPHALEXIN Hives [facility] 03/18/2007 DRUG INGREDI/6833036 03(SNOMED CT) CODEINE Other [facility] SYSTEM[facility]/350547 006(SNOMED CT) ALLERGIES NOT ON FILE [facility] ENCOUNTERS ADMIT/DISCHARGE ACCOUNT NUMBER ADMITTING ENCOUNTER CLASS LOCATION SOURCE 07/13/2024/ 5 [id number] Ambulatory Building:[facility] 05/03/2024/ 4 [id number] Ambulatory Building:[facility] PAYERS ENCOUNTER GUARANTOR PAYER SUBSCRIBER SOURCE 07/13/2024 ZAINAB KELLY: [id number] [facility] [address] [place] [address]Ehf: () Primary Insurance:MMO MANAGED MEDICAREPolicy Number: [id number] Date:[id number], [place] [address]XV: ZAINAB KELLY: [id number] [address] [address]Yxu: (HP) [facility] 05/03/2024 ZAINAB KELLY: [id number] [address] [address]Yig: (HP) Primary Insurance:MEDICAREPoli cy Number: [id number] Date:2024-05-03 ZAINAB KELLY: [id number] [address] [address]Sbo: (HP) [facility] 05/03/2024 Secondary Insurance:[employer] [place] MEDICAREPolicy Number: [id number] Date:2023-07-03 ZAINAB KELLY: [id number] [address] [address]Knb: (HP) [facility]
--- NOTE | 2025-03-01 08:28 | BD_ITS ---
PROCEDURE: DEXA BONE DENSITY STUDY 03/01/2025 REASON FOR EXAM: F, age 69 y/o . Postmenopausal screening. TECHNIQUE: Procedure Code: BDDBD Modality: DX Procedure: DEXA BONE DENSITY STUDY COMPARISON: 2022 FINDINGS: BMD and T-SCORES Lumbar spine: 1.015 g/cm2, T-score -0.3 Levels: L1 through L4 Change from prior: Right femoral neck: 0.494 g/cm2, T-score -3.2 Femoral neck comparison data not recommended for monitoring change. Prior T-score Right total hip: 0.595 g/cm2, T-score -2.8 Change from prior: Decrease of 8.2%. The World Health Organization has defined the following categories based on bone density: Normal bone density: T-score equal to or greater than -1.0 Osteopenia: T-score between -1.0 and -2.5 Osteoporosis: T-score equal to or less than -2.5 FRAX (or Comparable) Fracture Risk Assessment: 10 Year Probability of Fracture: Major Osteoporotic Fracture: 27% Hip Fracture: 8.8% (Note: FRAX is not to be reported in setting of normal range bone density, osteoporosis on DEXA, known history of osteoporosis, prior osteoporotic hip or vertebral fracture, or for any patient undergoing pharmacological treatment for bone loss.) The National Osteoporosis Foundation (NOF) recommends pharmacological treatment for patients with a FRAX 10-year risk of 3% or higher for a hip fracture, or 20% or higher for a major osteoporotic fracture, to prevent osteoporosis and reduce fracture risk. The patient does meet the pharmacological treatment recommendations for prevention of osteoporosis. BD/Dexa Bone Density Study IMPRESSION: OSTEOPOROSIS. Recommend follow-up as clinically warranted. Reading Location: [id number]
== END | disposition home or self-care (01) ==
LOC: OPBD 08:27
PROVIDERS: PCP Family Medicine; Referring Provider Nurse Practitioner Family; Visit Provider Nurse Practitioner Family
DX: M81.0 Age-related osteoporosis without current pathological fracture (principal)
CPT/HCPCS: 77080